=== PATIENT | female | born 1945 | race Caucasian/White ===

== ENCOUNTER 2018-12-31 13:19 | Inpatient (IN) | payer MEDICARE, BC ==
[2018-12-31] MEDS ORDERED: Ondansetron 4 MG/2 ML SDV IVPUSH ONE (13:50)
[2018-12-31] MEDS ORDERED: fentaNYL 100 MCG/2 ML SDV IVPUSH ONE (13:50)
--- NOTE | 2018-12-31 13:56 | EDM.PDOC ---
ED HPI GENERAL MEDICAL PROBLEM - General Chief Complaint: Abdominal Pain Stated Complaint: SEVERE ABDOMINAL PAIN Time Seen by Provider: 12/31/18 13:40 Source of Information: Reports: Patient History Limitations: Reports: No Limitations - History of Present Illness INITIAL COMMENTS - FREE TEXT/NARRATIVE: 73-year-old female with severe abdominal pain over the past 4 days. It did not start suddenly, she has nausea but no vomiting, intermittent loose stools. She feels bloated, the abdominal distention is worsening every day. She has a history of gluten insensitivity, thought it was that at first but it's worsening , not resolving. She had a years ago, also a hernia repair in the last few years. No fevers or chills, no radiation of pain to the back. No urinary symptoms. She is very uncomfortable. Onset: Gradual Duration: Day(s): (4 days) Location: Reports: Abdomen, Generalized Quality: Reports: Sharp, Stabbing Worsens with: Reports: Movement (Any movement or attempting to eat causes severe pain) Associated Symptoms: Reports: Nausea/Vomiting (Nausea but no vomiting). 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 - Infectious Disease History Infectious Disease History: Reports: Chicken Pox, Measles, Mumps - Past Surgical History HEENT Surgical History: Reports: Tonsillectomy GI Surgical History: Reports: Hernia Repair/Other Female Surgical History: Reports: Section Social & Family History - Tobacco Use Smoking Status *Q: Never Smoker Second Hand Smoke Exposure: No - Caffeine Use Caffeine Use: Reports: Coffee - Alcohol Use Days Per Week of Alcohol Use: 7 Number of Drinks Per Day: 1 Total Drinks Per Week: 7 - Recreational Drug Use Recreational Drug Use: No ED ROS GENERAL - Review of Systems Review Of Systems: See Below Constitutional: Reports: Malaise, Decreased Appetite. Denies: Fever, Chills HEENT: Reports: No Symptoms Respiratory: Denies: Shortness of Breath, Cough Cardiovascular: Denies: Chest Pain GI/Abdominal: Reports: Abdominal Pain, Diarrhea, Nausea. Denies: Constipation, Vomiting : Reports: No Symptoms Skin: Reports: No Symptoms Neurological: Denies: Headache Psychiatric: Reports: No Symptoms ED EXAM, GI/ABD - Physical Exam Exam: See Below Exam Limited By: No Limitations General Appearance: Alert, Moderate Distress (Very uncomfortable) Eyes: Bilateral: Normal Appearance (No jaundice) Respiratory/Chest: No Respiratory Distress, Lungs Clear Cardiovascular: Regular Rate, Rhythm GI/Abdominal Exam: Normal Bowel Sounds, Other (Marked abdominal distention, tenderness to palpation diffusely and guarding) Extremities: No: Pedal Edema Neurological: Alert, Oriented Psychiatric: Anxious Skin Exam: Warm, Dry Course - Vital Signs Last Recorded V/S: Last Vital Signs Temp 97.4 F 01/01/19 03:00 Pulse 66 01/01/19 07:00 Resp 18 01/01/19 07:00 BP 117/59 L 01/01/19 07:00 Pulse Ox 97 01/01/19 07:00 - Orders/Labs/Meds Orders: Active Orders 24 hr Category Date Time Status NG [Gastrointestinal Tube Mgmt] [RC] ASDIRECTED Care 12/31/18 15:54 Active Dextrose 5%-Lactated Ringers 1,000 ml Med 12/31/18 16:00 Active IV ASDIRECTED Sodium Chloride 0.9% [Saline Flush] Med 12/31/18 15:06 Active 10 ml FLUSH ASDIRECTED PRN NG [Nasogastric Orogastric Tube Insertion] [OM.PC] Oth 12/31/18 15:54 Ordered Routine Medication Orders Acetaminophen (Tylenol) 650 mg PO Q4H PRN PRN Reason: Pain (Mild 1-3)/fever Albuterol (Proventil Neb Soln) 2.5 mg NEB Q4H PRN PRN Reason: Shortness Of Breath/wheezing Fentanyl (Sublimaze) 25 mcg IVPUSH Q2H PRN PRN Reason: Pain (severe 7-10) Last Admin: 12/31/18 18:01 Dose: 25 mcg Dextrose/Lactated Ringer's (Dextrose 5%-Lactated Ringers) 1,000 mls @ 125 mls/ hr IV ASDIRECTED [facility] Last Admin: 01/01/19 03:06 Dose: 125 mls/hr Infusion: 01/01/19 02:00 Dose: 125 mls/hr Admin: 12/31/18 18:00 Dose: 125 mls/hr Piperacillin/Tazobactam/ (Dextrose 3.375 gm/ Premix) 50 mls @ 100 mls/hr IV Q6H [facility] Last Admin: 01/01/19 05:52 Dose: 100 mls/hr Admin: 12/31/18 23:53 Dose: 100 mls/hr Admin: 12/31/18 18:35 Dose: 100 mls/hr Lorazepam (Ativan) 0.5 mg IVPUSH Q4H PRN PRN Reason: Nausea/Vomiting Last Admin: 12/31/18 22:30 Dose: 0.5 mg Ondansetron HCl (Zofran Odt) 4 mg PO Q6H PRN PRN Reason: Nausea able to take PO Ondansetron HCl (Zofran) 4 mg IV Q6H PRN PRN Reason: Nausea/Vomiting Last Admin: 12/31/18 19:28 Dose: 4 mg Pantoprazole Sodium (Protonix Iv) [address] [facility] Last Admin: 12/31/18 19:57 Dose: 40 mg Sodium Chloride (Saline Flush) 10 ml FLUSH ASDIRECTED PRN PRN Reason: Keep Vein Open Last Admin: 12/31/18 15:10 Dose: 10 ml Labs: Laboratory Tests 12/31/18 12/31/18 12/31/18 Range/Units 13:50 13:50 13:50 WBC 10.4 (4.5-11.0) K/uL RBC 4.50 (3.30-5.50) M/uL Hgb 13.7 (12.0-15.0) g/dL Hct 40.4 (36.0-48.0) % MCV 90 (80-98) fL MCH 30 (27-31) pg MCHC 34 (32-36) % Plt Count 247 (150-400) K/uL Neut % (Auto) 81 H (36-66) % Lymph % (Auto) 9 L (24-44) % [place] % (Auto) 8 H (2-6) % Eos % (Auto) 1 L (2-4) % Baso % (Auto) 0 (0-1) % Sodium 125 L (140-148) mmol/L Potassium 3.7 (3.6-5.2) mmol/L Chloride 89 L (100-108) mmol/L Carbon Dioxide 25 (21-32) mmol/L Anion Gap 14.7 H (5.0-14.0) mmol/L BUN 8 (7-18) mg/dL Creatinine 0.8 (0.6-1.0) mg/dL Est Cr Clr Drug Dosing 55.70 mL/min Estimated GFR (MDRD) > 60 (>60) Glucose 122 H (74-106) mg/dL Lactic Acid 2.1 H (0.4-2.0) mmol/L Calcium 9.5 (8.5-10.1) mg/dL Total Bilirubin 1.1 H (0.2-1.0) mg/dL AST 35 (15-37) U/L ALT 33 (12-78) U/L Alkaline Phosphatase 83 (46-116) U/L Total Protein 8.0 (6.4-8.2) g/dL Albumin 3.4 (3.4-5.0) g/dL Globulin 4.6 H (2.3-3.5) g/dL Albumin/Globulin Ratio 0.7 L (1.2-2.2) Lipase 59 L (73-393) U/L Meds: Medications Generic Name Dose Route Start Last Admin Trade Name Freq PRN Reason Stop Dose Admin Acetaminophen 650 mg 12/31/18 17:26 Tylenol PO Q4H PRN Pain (Mild 1-3)/fever Albuterol 2.5 mg 12/31/18 17:26 Proventil Neb Soln NEB Q4H PRN Shortness Of Breath/wheezing Fentanyl 25 mcg 12/31/18 17:26 12/31/18 18:01 Sublimaze IVPUSH 25 mcg Q2H PRN Administration Pain (severe 7-10) Dextrose/Lactated Ringer's 1,000 mls @ 125 mls/hr 12/31/18 16:00 01/01/19 03: 06 Dextrose 5%-Lactated Ringers IV 125 mls/hr ASDIRECTED SHELL Administration Piperacillin/Tazobactam/ 50 mls @ 100 mls/hr 12/31/18 18:00 01/01/19 05:52 Dextrose 3.375 gm/ Premix IV 100 mls/hr Q6H SHELL Administration Lorazepam 0.5 mg 12/31/18 17:26 12/31/18 22:30 Ativan IVPUSH 0.5 mg Q4H PRN Administration Nausea/Vomiting Ondansetron HCl 4 mg 12/31/18 17:26 Zofran Odt PO Q6H PRN Nausea able to take PO Ondansetron HCl 4 mg 12/31/18 17:26 12/31/18 19:28 Zofran IV 4 mg Q6H PRN Administration Nausea/Vomiting Pantoprazole Sodium 40 mg 12/31/18 20:00 12/31/18 19:57 Protonix Iv IV 40 mg Q24H SHELL Administration Sodium Chloride 10 ml 12/31/18 15:06 12/31/18 15:10 Saline Flush FLUSH 10 ml ASDIRECTED PRN Administration Keep Vein Open Discontinued Medications Generic Name Dose Route Start Last Admin Trade Name Freq PRN Reason Stop Dose Admin Fentanyl 50 mcg 12/31/18 13:50 12/31/18 14:12 Sublimaze IVPUSH 12/31/18 13:51 50 mcg ONETIME ONE Administration Sodium Chloride 1,000 mls @ 500 mls/hr 12/31/18 14:00 12/31/18 14:08 Normal Saline IV 500 mls/hr ASDIRECTED SHELL Administration Sodium Chloride 80 mls @ 3 mls/sec 12/31/18 15:15 12/31/18 15:11 Normal Saline IV 3 mls/sec ASDIRECTED SHELL Administration Iopamidol 100 ml 12/31/18 15:15 12/31/18 15:10 Isovue-300 (61%) IV 100 ml . DIRECTED SHELL Administration Lorazepam 0.5 mg 12/31/18 15:54 12/31/18 16:07 Ativan IVPUSH 12/31/18 15:55 0.5 mg ONETIME ONE Administration Ondansetron HCl 4 mg 12/31/18 13:50 12/31/18 14:09 Zofran IVPUSH 12/31/18 13:51 4 mg ONETIME ONE Administration - Re-Assessments/Exams Free Text/Narrative Re-Assessment/Exam: 12/31/18 13:55 An IV will be started, patient will be given 50 g of fentanyl and 4 mg of IV Zofran. Normal saline hydration at 500 mL an hour. CBC, CMP, lactic acid and lipase with amylase were obtained and the patient will need a CT of the abdomen. 12/31/18 15:27 White count is normal, lactic acid 2.1, hemoglobin normal. Flat and upright x- ray shows multiple small bowel loops with air-fluid levels. The rest of her CMP was also reassuring. Dr. Pal, the hospitalist service agreed to see the patient to discuss admission for small bowel obstruction. CT abdomen confirms not only a small bowel obstruction but a fairly significant left-sided mass which could be an ongoing collection of infection or possibly a lesion. She will likely need surgery for evaluation. Departure - Departure Time of Disposition: 17:27 Disposition: Admitted As Inpatient 68 Clinical Impression: Small bowel obstruction Abdominal pain Qualifiers: Abdominal location: generalized Qualified Code(s): R10.84 - Generalized abdominal pain - Discharge Information - My Orders Last 24 Hours: My Active Orders 12/31/18 15:06 Sodium Chloride 0.9% [Saline Flush] 10 ml FLUSH ASDIRECTED PRN - Assessment/Plan Last 24 Hours: My Active Orders 12/31/18 15:06 Sodium Chloride 0.9% [Saline Flush] 10 ml FLUSH ASDIRECTED PRN
[2018-12-31] MEDS ORDERED: Sodium Chloride 0.9% 1,000 ML IV SCH (14:00)
[2018-12-31] MEDS ORDERED: Sodium Chloride 0.9% 10 ML Syringe FLUSH PRN (15:06)
[2018-12-31] MEDS ORDERED: Iopamidol 612 MG/ML 100 ML Bottle IV SCH (15:15)
[2018-12-31] MEDS ORDERED: Sodium Chloride 0.9% 80 ML IV SCH (15:15)
--- NOTE | 2018-12-31 15:17 | CRLCR ---
Indication: Left upper quadrant pain, postsurgical malabsorption, status post bariatric surgery. Technique: Abdomen 2 view. Comparison: None. Findings: Multiple loops of dilated small bowel with air-fluid levels in the right and mid abdomen. A small amount of stool is seen in the rectum. Otherwise no colonic air. Findings are worrisome for obstruction. No pneumatosis or free air. Thoracolumbar curve. Degenerative changes lower lumbar spine. The lung bases are clear. Impression: Findings worrisome for small bowel obstruction. Dictated by Rosana Adan MD @ Dec 31 2018 3:12PM Signed by Dr. Rosana Adan @ Dec 31 2018 3:17PM
[2018-12-31] MEDS ORDERED: LORazepam 2 MG/ML SDV IVPUSH ONE (15:54)
--- NOTE | 2018-12-31 16:05 | PCM.HP.2 ---
H&P History of Present Illness - General Date of Service: 12/31/18 Admit Problem/Dx: Admission Diagnosis/Problem Admission Diagnosis/Problem Small bowel obstruction due to adhesions Source of Information: Patient, Family, Provider History Limitations: Reports: No Limitations - History of Present Illness Initial Comments - Free Text/Narative: CC: I have cramps HPI: Iraida presents to the emergency room today with 4 days of progressive crampy abdominal pain. The pain is most intense on the right side of the abdomen and comes and goes in waves. She always has a low level of pain present and when the pain progresses it can become severe. She has tried omeprazole and Gas-X without any relief. If she bends over that seems to help the pain. Eating or attempts to eat have made the pain worse. She has had nausea but no vomiting. She has never had pain like this before. Pain has steadily been getting worse. She has not had significant fevers or shaking chills. No change in bladder habits. She does continue to pass some stool but it has been watery diarrhea and small quantities. No complaints of shortness of breath. She did have a hernia surgery on the right lower side of her abdomen in July of this year. Workup in the emergency room revealed normal labs other than a mildly elevated lactic acid. CT scan of the abdomen and pelvis suggested a bowel obstruction. An NG tube we placed in the emergency room and she will be admitted for management. 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 - Infectious Disease History Infectious Disease History: Reports: Chicken Pox, Measles, Mumps - Past Surgical History HEENT Surgical History: Reports: Tonsillectomy GI Surgical History: Reports: Hernia Repair/Other Female Surgical History: Reports: Section Social & Family History - Family History Cardiac: Reports: CAD - Tobacco Use Smoking Status *Q: Never Smoker Second Hand Smoke Exposure: No - Caffeine Use Caffeine Use: Reports: Coffee - Alcohol Use Days Per Week of Alcohol Use: 7 Number of Drinks Per Day: 1 Total Drinks Per Week: 7 - Recreational Drug Use Recreational Drug Use: No H&P Review of Systems - Review of Systems: Review Of Systems: See Below Free Text/Narrative: A complete 12 point review of systems was obtained. Pertinent positives and negatives are noted in the history of present illness. All other systems were reviewed and were negative except as noted. Exam - Exam Exam: See Below - Vital Signs Vital Signs: Last Vital Signs Temp 35.5 C 12/31/18 13:43 Pulse 71 12/31/18 13:43 Resp 16 12/31/18 13:43 BP 154/56 H 12/31/18 13:43 Pulse Ox 99 12/31/18 13:43 Weight: 56.245 kg - Exam Quality Assessment: No: Supplemental Oxygen General: Alert, Oriented, Cooperative. No: Mild Distress HEENT: Conjunctiva Clear. No: Mucosa Moist & [place] (dry), Scleral Icterus Neck: Supple, Trachea Midline. No: Lymphadenopathy Lungs: Clear to Auscultation, Normal Respiratory Effort Cardiovascular: Regular Rate, Regular Rhythm. No: Systolic Murmur GI/Abdominal Exam: Distended, Tender (exquisite tenderness diffusely ), Abnormal Bowel Sounds (hypoactive with tympanic sounds). No: Soft Back Exam: Normal Inspection, Full Range of Motion Extremities: No Pedal Edema. No: Increased Warmth Peripheral Pulses: 2+: Dorsalis Pedis (L), Dorsalis Pedis (R) Skin: Warm, Dry Neuro Extensive - Mental Status: Alert, Oriented x3, Nl Response to Commands Neuro Extensive - Motor, Sensory, Reflexes: No: Dysarthria, Abnormal Motor, Tremor Psychiatric: Alert, Normal Affect - Patient Data Lab Results Last 24 hrs: Laboratory Results - last 24 hr 12/31/18 12/31/18 12/31/18 Range/Units 13:50 13:50 13:50 WBC 10.4 (4.5-11.0) K/uL RBC 4.50 (3.30-5.50) M/uL Hgb 13.7 (12.0-15.0) g/dL Hct 40.4 (36.0-48.0) % MCV 90 (80-98) fL MCH 30 (27-31) pg MCHC 34 (32-36) % Plt Count 247 (150-400) K/uL Neut % (Auto) 81 H (36-66) % Lymph % (Auto) 9 L (24-44) % [place] % (Auto) 8 H (2-6) % Eos % (Auto) 1 L (2-4) % Baso % (Auto) 0 (0-1) % Sodium 125 L (140-148) mmol/L Potassium 3.7 (3.6-5.2) mmol/L Chloride 89 L (100-108) mmol/L Carbon Dioxide 25 (21-32) mmol/L Anion Gap 14.7 H (5.0-14.0) mmol/L BUN 8 (7-18) mg/dL Creatinine 0.8 (0.6-1.0) mg/dL Est Cr Clr Drug Dosing 55.70 mL/min Estimated GFR (MDRD) > 60 (>60) Glucose 122 H (74-106) mg/dL Lactic Acid 2.1 H (0.4-2.0) mmol/L Calcium 9.5 (8.5-10.1) mg/dL Total Bilirubin 1.1 H (0.2-1.0) mg/dL AST 35 (15-37) U/L ALT 33 (12-78) U/L Alkaline Phosphatase 83 (46-116) U/L Total Protein 8.0 (6.4-8.2) g/dL Albumin 3.4 (3.4-5.0) g/dL Globulin 4.6 H (2.3-3.5) g/dL Albumin/Globulin Ratio 0.7 L (1.2-2.2) Lipase 59 L (73-393) U/L Result Diagrams: 12/31/18 13:50 12/31/18 13:50 Imaging Impressions Last 24 hrs: CT abd/pelvis - images personally reviewed - dilated loops of small bowel with air fluid levels concerning for SBO. Transition point probably in the right lower abdomen. *Q Meaningful Use (ADM) - VTE Risk Assess *Q Each Risk Factor Represents 1 Point: None Total Score 1 Point Risk Factors: 0 Each Risk Factor Represents 2 Points: Age 60 - 74 Years Total Score 2 Point Risk Factors: 2 Each Risk Factor Represents 3 Points: None Total Score 3 Point Risk Factors: 0 Each Risk Factor Represents 5 Points: None Total Score 5 Point Risk Factors: 0 Venous Thromboembolism Risk Factor Score *Q: 2 - Problem List (1) Small bowel obstruction SNOMED Code(s): 029017016 ICD Code: K56.609 - UNSP INTESTNL OBST, UNSP TO PARTIAL VERSUS COMPLETE OBST Status: Acute Current Visit: Yes Problem List Initiated/Reviewed/Updated: Yes Orders Last 24hrs: Active Orders 24 hr Category Date Time Status Patient Status Manage Transfer [TRANSFER] Routine ADT 12/31/18 15:56 Ordered NG [Gastrointestinal Tube Mgmt] [RC] ASDIRECTED Care 12/31/18 15:54 Active Abdomen Pelvis w Cont [CT] Stat Exams 12/31/18 14:46 Taken Dextrose 5%-Lactated Ringers 1,000 ml Med 12/31/18 16:00 Active IV ASDIRECTED Iopamidol [Isovue-300 (61%)] Med 12/31/18 15:15 Active 100 ml IV . DIRECTED Sodium Chloride 0.9% [Saline Flush] Med 12/31/18 15:06 Active 10 ml FLUSH ASDIRECTED PRN NG [Nasogastric Orogastric Tube Insertion] [OM.PC] Oth 12/31/18 15:54 Ordered Routine Resuscitation Status Routine Resus Stat 12/31/18 15:56 Ordered Medication Orders Dextrose/Lactated Ringer's (Dextrose 5%-Lactated Ringers) 1,000 mls @ 125 mls/ hr IV ASDIRECTED SHELL Iopamidol (Isovue-300 (61%)) 100 ml IV . DIRECTED SHELL Last Admin: 12/31/18 15:10 Dose: 100 ml Sodium Chloride (Saline Flush) 10 ml FLUSH ASDIRECTED PRN PRN Reason: Keep Vein Open Last Admin: 12/31/18 15:10 Dose: 10 ml Assessment/Plan Comment:: ASSESSMENT AND PLAN - Small bowel obstruction - likely secondary to adhesions. To my eye the transition point appears to be in the right lower abdomen where she had her hernia surgery several months ago. She has significant distention at this time and would benefit from NG tube decompression. There is evidence for dehydration. -NG tube placement with low continuous suction -IV fluids -Symptomatic management of pain and nausea -Flat and upright in the morning -Surgical consultation if worsening or not improving Essential hypertension - planning to hold lisinopril until we see how her blood pressure trends. Gluten Intolerance - Maintenance issues - - DVT prophylaxis - SCDs - GI prophylaxis - IV PPI - Nutrition - nothing by mouth - Calle catheter - not indicated at this time CODE STATUS - full code Admission justification - This patient will be admitted for inpatient services and is medically appropriate meeting medical necessity for inpatient admission as outlined in my documentation. I reasonably expect the patient will require inpatient services that span a period time over 2 midnights. I reasonably expect this patient to be discharged or transferred within 96 hours after admission to the [facility]. Disposition - I would anticipate discharge home after the hospital stay Primary care physician - Isaac Pal M.D. - Mortality Measure Prognosis:: Good
--- NOTE | 2018-12-31 16:58 | CRLCT ---
INDICATION: Abdominal pain, distention. TECHNIQUE: CT abdomen and pelvis acquired with 100 cc Isovue-300 IV contrast. COMPARISON: Abdominal radiograph 12/31/2018. FINDINGS: There is an approximately 8.2 x 6.0 x 8.8 cm heterogeneously enhancing mass or complex fluid collection in the left abdomen (series 2 image 69 and series 3 image 35). The descending colon appears closely associated with this mass. There are multiple dilated loops of mid and distal small-bowel with air-fluid levels with proximal discrete transition point in the left abdomen near this mass. The stomach and duodenum are not dilated. No decompressed distal small bowel loops or distal transition point is identified. Scattered interloop free fluid throughout the abdomen. No definite free air or pneumatosis. Findings are worrisome for a colonic mass versus perforation with abscess formation. Likely reactive small bowel ileus. The liver, gallbladder, spleen, pancreas, kidneys, and adrenal glands are negative. No hydronephrosis. No definite lymphadenopathy. Degenerative changes of the spine. Mild bibasilar atelectasis. The lung bases are otherwise clear. IMPRESSION: 1. Large heterogeneously enhancing mass or complex fluid collection in the left abdomen which appears closely associated with the descending colon. Findings are worrisome for a colonic mass or perforation with abscess. Findings discussed with Edward Kurtz at 4:54 p.m. on 12/31/2018. 2. Multiple dilated loops of mid and distal small bowel with air-fluid levels and proximal discrete transition point near the left abdominal process. No distal transition point is identified. Findings may represent reactive ileus. Please note that all CT scans at this facility use dose modulation, iterative reconstruction, and/or weight-based dosing when appropriate to reduce radiation dose to as low as reasonably achievable. Dictated by Rosana Adan MD @ Dec 31 2018 4:34PM Signed by Dr. Rosana Adan @ Dec 31 2018 4:57PM
[2018-12-31] MEDS ORDERED: Acetaminophen 325 MG Tab PO PRN (17:26)
[2018-12-31] MEDS ORDERED: Albuterol 0.083% 2.5 MG/3 ML Neb Soln NEB PRN (17:26)
[2018-12-31] MEDS: Dextrose 5%-Lactated Ringers 1,000 ML IV SCH (18:00)
[2018-12-31] MEDS: fentaNYL 100 MCG/2 ML SDV IVPUSH PRN (18:01)
[2018-12-31] MEDS: Piperacillin/Tazobactam/Dext 3.375 GM in Premix Bag 1 BAG IV SCH ×2 (18:35→23:53)
[2018-12-31] MEDS: Ondansetron 4 MG/2 ML SDV IV PRN (19:28)
[2018-12-31] MEDS: Pantoprazole 40 MG Vial IV SCH (19:57)
[2018-12-31] MEDS: LORazepam 2 MG/ML SDV IVPUSH PRN (22:30)
[2019-01-01] MEDS: Dextrose 5%-Lactated Ringers 1,000 ML IV SCH ×3 (03:06→19:10)
[2019-01-01] MEDS: Piperacillin/Tazobactam/Dext 3.375 GM in Premix Bag 1 BAG IV SCH ×4 (05:52→23:56)
--- NOTE | 2019-01-01 05:53 | CRLCR ---
INDICATION: Small bowel obstruction TECHNIQUE: Abdominal radiograph 2 views COMPARISON: 12/31/2018 FINDINGS: Bowel: Multiple loops of air-filled dilated small bowel with scattered air-fluid levels are present and slightly more distended than prior examination. Interval placement of NG tube noted with the tip in the gastric body. Soft tissue: No evidence of pneumoperitoneum present. No suspicious calcifications noted. The bladder is opacified by excreted contrast. Bone: Unremarkable for age. IMPRESSIONS: 1. Multiple loops of air-filled dilated small bowel with scattered air-fluid levels are present and slightly more distended than prior examination. Findings remain consistent for small-bowel obstruction. 2. Interval placement of NG tube noted with the tip in the gastric body. Dictated by Jose Antonio Varma MD @ 01/01/2019 5:52:03 AM Dictated by: Jose Antonio Varma MD @ 01/01/2019 05:52:05 (Electronically Signed)
--- NOTE | 2019-01-01 09:45 | PCM.PN ---
- General Info Date of Service: 01/01/19 Subjective Update: There were no acute events overnight. She did have an episode of nausea with vomiting after the TV remote was dropped on her abdomen. No nausea this am. Pain controlled. No fevers. Abdominal X-ray shows increased distension. Not passing gas and no BM. Functional Status: Reports: Pain Controlled - Review of Systems General: Denies: Fever Gastrointestinal: Reports: Abdominal Pain. Denies: Nausea - Patient Data Vitals - Most Recent: Last Vital Signs Temp 36.3 C 01/01/19 03:00 Pulse 66 01/01/19 07:00 Resp 18 01/01/19 07:00 BP 117/59 L 01/01/19 07:00 Pulse Ox 97 01/01/19 07:00 Weight - Most Recent: 58.287 kg I&O - Last 24 Hours: Intake & Output 12/31/18 01/01/19 01/01/19 22:59 06:59 14:59 Intake Total 125 1673 Output Total 150 400 200 Balance -25 -400 1473 Lab Results Last 24 Hours: Laboratory Results - last 24 hr 12/31/18 12/31/18 12/31/18 Range/Units 13:50 13:50 13:50 WBC 10.4 (4.5-11.0) K/uL RBC 4.50 (3.30-5.50) M/uL Hgb 13.7 (12.0-15.0) g/dL Hct 40.4 (36.0-48.0) % MCV 90 (80-98) fL MCH 30 (27-31) pg MCHC 34 (32-36) % Plt Count 247 (150-400) K/uL Neut % (Auto) 81 H (36-66) % Lymph % (Auto) 9 L (24-44) % [place] % (Auto) 8 H (2-6) % Eos % (Auto) 1 L (2-4) % Baso % (Auto) 0 (0-1) % Sodium 125 L (140-148) mmol/L Potassium 3.7 (3.6-5.2) mmol/L Chloride 89 L (100-108) mmol/L Carbon Dioxide 25 (21-32) mmol/L Anion Gap 14.7 H (5.0-14.0) mmol/L BUN 8 (7-18) mg/dL Creatinine 0.8 (0.6-1.0) mg/dL Est Cr Clr Drug Dosing 55.70 mL/min Estimated GFR (MDRD) > 60 (>60) Glucose 122 H (74-106) mg/dL Lactic Acid 2.1 H (0.4-2.0) mmol/L Calcium 9.5 (8.5-10.1) mg/dL Magnesium (1.8-2.4) mg/dL Total Bilirubin 1.1 H (0.2-1.0) mg/dL AST 35 (15-37) U/L ALT 33 (12-78) U/L Alkaline Phosphatase 83 (46-116) U/L Total Protein 8.0 (6.4-8.2) g/dL Albumin 3.4 (3.4-5.0) g/dL Globulin 4.6 H (2.3-3.5) g/dL Albumin/Globulin Ratio 0.7 L (1.2-2.2) Lipase 59 L (73-393) U/L 01/01/19 01/01/19 Range/Units 04:35 04:35 WBC 10.1 (4.5-11.0) K/uL RBC 4.18 (3.30-5.50) M/uL Hgb 12.7 (12.0-15.0) g/dL Hct 37.7 (36.0-48.0) % MCV 90 (80-98) fL MCH 30 (27-31) pg MCHC 34 (32-36) % Plt Count 285 (150-400) K/uL Neut % (Auto) (36-66) % Lymph % (Auto) (24-44) % [place] % (Auto) (2-6) % Eos % (Auto) (2-4) % Baso % (Auto) (0-1) % Sodium 127 L (140-148) mmol/L Potassium 4.3 (3.6-5.2) mmol/L Chloride 93 L (100-108) mmol/L Carbon Dioxide 28 (21-32) mmol/L Anion Gap 10.3 (5.0-14.0) mmol/L BUN 9 (7-18) mg/dL Creatinine 0.8 (0.6-1.0) mg/dL Est Cr Clr Drug Dosing 55.70 mL/min Estimated GFR (MDRD) > 60 (>60) Glucose 165 H (74-106) mg/dL Lactic Acid (0.4-2.0) mmol/L Calcium 8.5 (8.5-10.1) mg/dL Magnesium 2.0 (1.8-2.4) mg/dL Total Bilirubin (0.2-1.0) mg/dL AST (15-37) U/L ALT (12-78) U/L Alkaline Phosphatase (46-116) U/L Total Protein (6.4-8.2) g/dL Albumin (3.4-5.0) g/dL Globulin (2.3-3.5) g/dL Albumin/Globulin Ratio (1.2-2.2) Lipase (73-393) U/L Med Orders - Current: Current Medications Acetaminophen (Tylenol) 650 mg PO Q4H PRN PRN Reason: Pain (Mild 1-3)/fever Albuterol (Proventil Neb Soln) 2.5 mg NEB Q4H PRN PRN Reason: Shortness Of Breath/wheezing Fentanyl (Sublimaze) 25 mcg IVPUSH Q2H PRN PRN Reason: Pain (severe 7-10) Last Admin: 12/31/18 18:01 Dose: 25 mcg Dextrose/Lactated Ringer's (Dextrose 5%-Lactated Ringers) 1,000 mls @ 125 mls/ hr IV ASDIRECTED [facility] Last Admin: 01/01/19 03:06 Dose: 125 mls/hr Piperacillin/Tazobactam/ (Dextrose 3.375 gm/ Premix) 50 mls @ 100 mls/hr IV Q6H [facility] Last Admin: 01/01/19 05:52 Dose: 100 mls/hr Lorazepam (Ativan) 0.5 mg IVPUSH Q4H PRN PRN Reason: Nausea/Vomiting Last Admin: 12/31/18 22:30 Dose: 0.5 mg Ondansetron HCl (Zofran Odt) 4 mg PO Q6H PRN PRN Reason: Nausea able to take PO Ondansetron HCl (Zofran) 4 mg IV Q6H PRN PRN Reason: Nausea/Vomiting Last Admin: 12/31/18 19:28 Dose: 4 mg Pantoprazole Sodium (Protonix Iv) 40 mg IV Q24H [facility] Last Admin: 12/31/18 19:57 Dose: 40 mg Sodium Chloride (Saline Flush) 10 ml FLUSH ASDIRECTED PRN PRN Reason: Keep Vein Open Last Admin: 12/31/18 15:10 Dose: 10 ml Discontinued Medications Fentanyl (Sublimaze) 50 mcg IVPUSH ONETIME ONE Stop: 12/31/18 13:51 Last Admin: 12/31/18 14:12 Dose: 50 mcg Sodium Chloride (Normal Saline) 1,000 mls @ 500 mls/hr IV ASDIRECTED [facility] Last Admin: 12/31/18 14:08 Dose: 500 mls/hr Sodium Chloride (Normal Saline) 80 mls @ 3 mls/sec IV ASDIRECTED [facility] Last Admin: 12/31/18 15:11 Dose: 3 mls/sec Iopamidol (Isovue-300 (61%)) 100 ml IV . DIRECTED [facility] Last Admin: 12/31/18 15:10 Dose: 100 ml Lorazepam (Ativan) 0.5 mg IVPUSH ONETIME ONE Stop: 12/31/18 15:55 Last Admin: 12/31/18 16:07 Dose: 0.5 mg Ondansetron HCl (Zofran) 4 mg IVPUSH ONETIME ONE Stop: 12/31/18 13:51 Last Admin: 12/31/18 14:09 Dose: 4 mg - Exam Quality Assessment: No: Supplemental Oxygen General: Alert, Oriented, Cooperative, No Acute Distress Lungs: Normal Respiratory Effort GI/Abdominal Exam: Soft, Distended, Tender, Abnormal Bowel Sounds (hypoactive) Extremities: No Pedal Edema. No: Increased Warmth Psy/Mental Status: Alert, Normal Affect - Problem List & Annotations (1) Small bowel obstruction SNOMED Code(s): 490605983 Code(s): K56.609 - UNSP INTESTNL OBST, UNSP TO PARTIAL VERSUS COMPLETE OBST Status: Acute Current Visit: Yes - Problem List Review Problem List Initiated/Reviewed/Updated: Yes - My Orders Last 24 Hours: My Active Orders 12/31/18 15:54 NG [Gastrointestinal Tube Mgmt] [RC] ASDIRECTED NG [Nasogastric Orogastric Tube Insertion] [OM.PC] Routine 12/31/18 15:56 Resuscitation Status Routine 12/31/18 16:00 Dextrose 5%-Lactated Ringers 1,000 ml IV ASDIRECTED 12/31/18 17:26 Patient Status [ADT] Routine Antiembolic Devices [RC] .Routine Intake and Output [RC] QSHIFT Notify Provider Vital Signs [RC] ASDIRECTED Oxygen Therapy [RC] PRN RT Aerosol Therapy [RC] ASDIRECTED Up ad Carmita [RC] ASDIRECTED VTE/DVT Education [RC] Per Unit Routine Vital Signs [RC] Q4H Acetaminophen [Tylenol] 650 mg PO Q4H PRN Albuterol [Proventil Neb Soln] 2.5 mg NEB Q4H PRN LORazepam [Ativan] 0.5 mg IVPUSH Q4H PRN Ondansetron [Zofran ODT] 4 mg PO Q6H PRN Ondansetron [Zofran] 4 mg IV Q6H PRN fentaNYL [Sublimaze] 25 mcg IVPUSH Q2H PRN Sequential Compression Device [OM.PC] Routine 12/31/18 18:00 Piperacillin/Tazobactam/Dext [Zosyn in Dextrose Iso-Osmotic 3.375 GM] 3.375 gm Premix Bag 1 bag IV Q6H 12/31/18 20:00 Pantoprazole [ProTONIX IV] 40 mg IV Q24H 12/31/18 Dinner Nothing per Oral Now Diet [DIET] 01/01/19 09:43 Consult to Physician [CONS] Routine 01/01/19 09:44 Notify Provider Consults [RC] ASDIRECTED 01/02/19 05:00 BASIC METABOLIC PANEL,BMP [CHEM] Timed CBC W/O DIFF,HEMOGRAM [HEME] Timed (1) - Plan Plan:: ASSESSMENT AND PLAN - Complex fluid collection versus mass in left upper quadrant - no lymphadenopathy. I suspect this is from previous ruptured diverticulitis with walled off abscess. Surgical team will be consult did and I would anticipate surgical intervention later in the day. -Consult Dr. Leblanc -Additional management as discussed below Small bowel obstruction - likely secondary to adhesions complex fluid collection in the left upper quadrant. x-ray shows increased disntion today. -NG tube placement with low continuous suction -IV fluids -Symptomatic management of pain and nausea Essential hypertension - planning to hold lisinopril until we see how her blood pressure trends. Gluten Intolerance Maintenance issues - - DVT prophylaxis - SCDs - GI prophylaxis - IV PPI - Nutrition - nothing by mouth Disposition - I would anticipate discharge home after the hospital stay Primary care physician - Isaac Pal M.D.
[2019-01-01] MEDS: Erythromycin Ethylsuccinate Susp 200 MG/5 ML 100 ML Bottle PO SCH ×3 (15:27→21:16)
[2019-01-01] MEDS: Pantoprazole 40 MG Vial IV SCH (21:15)
[2019-01-02] MEDS: fentaNYL 100 MCG/2 ML SDV IVPUSH PRN (01:46)
[2019-01-02] MEDS: Ondansetron 4 MG/2 ML SDV IV PRN (01:46)
[2019-01-02] MEDS: LORazepam 2 MG/ML SDV IVPUSH PRN (03:52)
[2019-01-02] MEDS: Dextrose 5%-Lactated Ringers 1,000 ML IV SCH (04:09)
[2019-01-02] MEDS: Piperacillin/Tazobactam/Dext 3.375 GM in Premix Bag 1 BAG IV SCH ×3 (05:41→19:51)
[2019-01-02] MEDS ORDERED: Naloxone 0.4 MG/ML SDV IVPUSH PRN (07:46)
[2019-01-02] MEDS ORDERED: fentaNYL 250 MCG/5 ML SDV ONE (07:52)
[2019-01-02] MEDS ORDERED: Glycopyrrolate 0.2 MG/ML 5 ML MDV ONE (07:53)
[2019-01-02] MEDS ORDERED: Ondansetron 4 MG/2 ML SDV ONE (07:53)
[2019-01-02] MEDS ORDERED: Dexamethasone 4 MG/ML SDV ONE (07:53)
[2019-01-02] MEDS ORDERED: Propofol 200 MG/20 ML SDV ONE (07:53)
[2019-01-02] MEDS ORDERED: Rocuronium 50 MG/5 ML Vial ONE (07:53)
[2019-01-02] MEDS ORDERED: Neostigmine Methylsulfate 1 MG/ML 5 ML Syringe ONE (07:53)
[2019-01-02] MEDS ORDERED: Sodium Chloride 0.9% 10 ML ONE (09:02)
[2019-01-02] MEDS ORDERED: Midazolam 1 MG/ML 2 ML SDV ONE (09:11)
[2019-01-02] MEDS ORDERED: Succinylcholine 200 MG/10 ML MDV ONE (09:33)
[2019-01-02] MEDS ORDERED: Lactated Ringers 1,000 ML ONE (10:26)
--- NOTE | 2019-01-02 10:33 | PCM.PN ---
- General Info Date of Service: 01/02/19 Subjective Update: No acute events overnight. She did have an increase in her pain after receiving aggressive bowel stimulation. No significant pain or nausea this morning. She did not have any vomiting overnight. NG tube put out about 200 mL of fluid. No fevers. Surgical intervention is planned this morning. Functional Status: Reports: Pain Controlled - Review of Systems General: Denies: Fever Gastrointestinal: Reports: Abdominal Pain, Nausea - Patient Data Vitals - Most Recent: Last Vital Signs Temp 36.2 C 01/02/19 03:00 Pulse 69 01/02/19 03:00 Resp 14 01/02/19 03:00 BP 124/57 L 01/02/19 03:00 Pulse Ox 93 L 01/02/19 03:00 Weight - Most Recent: 58.287 kg I&O - Last 24 Hours: Intake & Output 01/01/19 01/02/19 01/02/19 22:59 06:59 14:59 Intake Total 1311 1403 Output Total 200 100 Balance 1111 1303 Lab Results Last 24 Hours: Laboratory Results - last 24 hr 01/02/19 01/02/19 01/02/19 Range/Units 03:41 03:41 09:14 WBC 8.9 (4.5-11.0) K/uL RBC 3.98 (3.30-5.50) M/uL Hgb 12.3 (12.0-15.0) g/dL Hct 36.4 (36.0-48.0) % MCV 92 (80-98) fL MCH 31 (27-31) pg MCHC 34 (32-36) % Plt Count 305 (150-400) K/uL Sodium 134 L (140-148) mmol/L Potassium 3.7 (3.6-5.2) mmol/L Chloride 97 L (100-108) mmol/L Carbon Dioxide 28 (21-32) mmol/L Anion Gap 12.7 (5.0-14.0) mmol/L BUN 5 L (7-18) mg/dL Creatinine 0.7 (0.6-1.0) mg/dL Est Cr Clr Drug Dosing 64.12 mL/min Estimated GFR (MDRD) > 60 (>60) Glucose 140 H (74-106) mg/dL Calcium 8.5 (8.5-10.1) mg/dL Blood Type O POSITIVE Gel Antibody Screen Negative Med Orders - Current: Current Medications Acetaminophen (Tylenol) 650 mg PO Q4H PRN PRN Reason: Pain (Mild 1-3)/fever Albuterol (Proventil Neb Soln) 2.5 mg NEB Q4H PRN PRN Reason: Shortness Of Breath/wheezing Fentanyl (Sublimaze) 25 mcg IVPUSH Q2H PRN PRN Reason: Pain (severe 7-10) Last Admin: 01/02/19 01:46 Dose: 25 mcg Dextrose/Lactated Ringer's (Dextrose 5%-Lactated Ringers) 1,000 mls @ 125 mls/ hr IV ASDIRECTED [facility] Last Admin: 01/02/19 04:09 Dose: 125 mls/hr Piperacillin/Tazobactam/ (Dextrose 3.375 gm/ Premix) 50 mls @ 100 mls/hr IV Q6H [facility] Last Admin: 01/02/19 05:41 Dose: 100 mls/hr Fentanyl 2,500 mcg/ Sodium (Chloride) 250 mls @ 0 mls/hr EPIDUR TITRATE [facility]; Protocol Lorazepam (Ativan) 0.5 mg IVPUSH Q4H PRN PRN Reason: Nausea/Vomiting Last Admin: 01/02/19 03:52 Dose: 0.5 mg Naloxone HCl (Narcan) 0.1 mg IVPUSH Q5M PRN PRN Reason: RESP RATE LESS THAN 6/MINUTE Ondansetron HCl (Zofran Odt) 4 mg PO Q6H PRN PRN Reason: Nausea able to take PO Ondansetron HCl (Zofran) 4 mg IV Q6H PRN PRN Reason: Nausea/Vomiting Last Admin: 01/02/19 01:46 Dose: 4 mg Pantoprazole Sodium (Protonix Iv) 40 mg IV Q24H [facility] Last Admin: 01/01/19 21:15 Dose: 40 mg Sodium Chloride (Saline Flush) 10 ml FLUSH ASDIRECTED PRN PRN Reason: Keep Vein Open Last Admin: 12/31/18 15:10 Dose: 10 ml Discontinued Medications Dexamethasone (Dexamethasone) Confirm Administered Dose 4 mg .ROUTE .STK-MED ONE Stop: 01/02/19 07:54 Erythromycin Ethylsuccinate (Eryped 200) 1,000 mg PO Q3H [facility] Stop: 01/01/19 21:01 Last Admin: 01/01/19 21:16 Dose: 1,000 mg Fentanyl (Sublimaze) 50 mcg IVPUSH ONETIME ONE Stop: 12/31/18 13:51 Last Admin: 12/31/18 14:12 Dose: 50 mcg Fentanyl (Sublimaze) Confirm Administered Dose 250 mcg .ROUTE .STK-MED ONE Stop: 01/02/19 07:53 Glycopyrrolate (Robinul) Confirm Administered Dose 1 mg .ROUTE .STK-MED ONE Stop: 01/02/19 07:54 Sodium Chloride (Normal Saline) 1,000 mls @ 500 mls/hr IV ASDIRECTED [facility] Last Admin: 12/31/18 14:08 Dose: 500 mls/hr Sodium Chloride (Normal Saline) 80 mls @ 3 mls/sec IV ASDIRECTED [facility] Last Admin: 12/31/18 15:11 Dose: 3 mls/sec Sodium Chloride (Normal Saline) Confirm Administered Dose 10 mls @ as directed .ROUTE .STK-MED ONE Stop: 01/02/19 09:03 Lactated Ringer's (Ringers, Lactated) Confirm Administered Dose 1,000 mls @ as directed .ROUTE .STK-MED ONE Stop: 01/02/19 10:27 Iopamidol (Isovue-300 (61%)) 100 ml IV . DIRECTED [facility] Last Admin: 12/31/18 15:10 Dose: 100 ml Lorazepam (Ativan) 0.5 mg IVPUSH ONETIME ONE Stop: 12/31/18 15:55 Last Admin: 12/31/18 16:07 Dose: 0.5 mg Midazolam HCl (Versed 1 Mg/Ml) Confirm Administered Dose 2 mg .ROUTE .STK-MED ONE Stop: 01/02/19 09:12 Neomycin Sulfate (Neomycin Sulfate) 1,000 mg PO Q3H [facility] Stop: 01/01/19 21:01 Last Admin: 01/01/19 21:16 Dose: 1,000 mg Neostigmine Methylsulfate (Neostigmine) Confirm Administered Dose 5 mg .ROUTE .STK-MED ONE Stop: 01/02/19 07:54 Ondansetron HCl (Zofran) 4 mg IVPUSH ONETIME ONE Stop: 12/31/18 13:51 Last Admin: 12/31/18 14:09 Dose: 4 mg Ondansetron HCl (Zofran) Confirm Administered Dose 4 mg .ROUTE .STK-MED ONE Stop: 01/02/19 07:54 Propofol (Diprivan 20 Ml) Confirm Administered Dose 200 mg .ROUTE .STK-MED ONE Stop: 01/02/19 07:54 Rocuronium [place] (Zemuron) Confirm Administered Dose 50 mg .ROUTE .STK-MED ONE Stop: 01/02/19 07:54 Succinylcholine Chloride (Quelicin) Confirm Administered Dose 200 mg .ROUTE .STK -MED ONE Stop: 01/02/19 09:34 - Exam Quality Assessment: No: Supplemental Oxygen General: Alert, Oriented, Cooperative, No Acute Distress Lungs: Normal Respiratory Effort GI/Abdominal Exam: Soft, Distended Extremities: No Pedal Edema Skin: Warm, Dry Psy/Mental Status: Alert, Normal Affect - Problem List & Annotations (1) Small bowel obstruction SNOMED Code(s): 765788243 Code(s): K56.609 - UNSP INTESTNL OBST, UNSP TO PARTIAL VERSUS COMPLETE OBST Status: Acute Current Visit: Yes - Problem List Review Problem List Initiated/Reviewed/Updated: Yes - My Orders Last 24 Hours: My Active Orders 01/01/19 09:43 Consult to Physician [CONS] Routine 01/01/19 09:44 Notify Provider Consults [RC] ASDIRECTED 01/03/19 05:00 BASIC METABOLIC PANEL,BMP [CHEM] Timed CBC W/O DIFF,HEMOGRAM [HEME] Timed (1) - Plan Plan:: ASSESSMENT AND PLAN - Complex fluid collection/abscess versus mass in left upper quadrant - no lymphadenopathy. I suspect this is from previous ruptured diverticulitis with walled off abscess. Surgical intervention planned today. -Surgical intervention this morning -Additional management as discussed below Small bowel obstruction - likely secondary to adhesions complex fluid collection in the left upper quadrant. -NG tube placement with low continuous suction -IV fluids -Symptomatic management of pain and nausea Essential hypertension - planning to hold lisinopril until we see how her blood pressure trends. Gluten Intolerance Maintenance issues - - DVT prophylaxis - SCDs - GI prophylaxis - IV PPI - Nutrition - nothing by mouth Disposition - I would anticipate discharge home after the hospital stay Primary care physician - Isaac Pal M.D.
[2019-01-02] MEDS ORDERED: diphenhydrAMINE 50 MG/ML SDV IVPUSH PRN (10:56)
[2019-01-02] MEDS ORDERED: Scopolamine 1.5 MG Transdermal Patch TOP SCH (11:00)
--- NOTE | 2019-01-02 11:54 | CONS ---
DATE OF SERVICE: 01/01/2019 REFERRING PHYSICIAN: CONSULTING PHYSICIAN: Stewart Leblanc MD REASON FOR CONSULTATION: Evaluation of abdominal pain. HISTORY OF PRESENT ILLNESS: This is a 73-year-old female who has hand a slow onset of abdominal pain over the course of greater than a week. This has resulted in intermittent constipation and diarrhea. The patient has attributed this to a gluten insensitivity modified by history of hernia repair with mesh and . The patient is currently not having bowel movements nor passing flatus. PAST MEDICAL HISTORY: Hypercholesterolemia, hernia repair with mesh as described above, section, and tonsillectomy. SOCIAL HISTORY: She does not smoke. FAMILY HISTORY: Noncontributory. REVIEW OF SYSTEMS: GENERAL: The patient feels tired. Has significantly decreased appetite recently. HEENT: No recent upper respiratory tract infections. RESPIRATORY: No shortness of breath. CARDIOVASCULAR: No chest pain. GASTROINTESTINAL: As above. EXTREMITIES: No abnormalities. NEUROLOGIC: No history of anxiety. PHYSICAL EXAMINATION: VITAL SIGNS: Stable. Temperature 97.3, blood pressure 124/64, pulse 63, respirations 16, and 96% on room air. HEENT: Pupils are equal. NECK: Supple. LUNGS: Clear. CARDIOVASCULAR: Regular rhythm and rate. RESPIRATORY: Lungs are clear to auscultation bilaterally. ABDOMEN: Significantly distended. Pain with palpation, rebound, and guarding. IMAGING: I did review the CT scan and there is concern for a colon mass. Less likely, it is diverticulitis. In addition, there is a transition point in the small bowel suggesting a concomitant small bowel obstruction. LABORATORY DATA: Lab results show a normal white blood cell count, hemoglobin is also normal at 12.3. Bilirubin is elevated at 1.1, creatinine is 0.7. ASSESSMENT AND PLAN: 1. 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 2. Small-bowel obstruction. The etiology of this can not be determined at this time. It is felt by myself and the other physicians that this is very suspicious for colon malignancy. Less likely, it is a diverticular mass. If this was a diverticular mass, in review of the imaging, this would not be amenable to percutaneous drainage as it is a multiloculated mass and also it is above the 5 cm criteria. The patient was given the option of percutaneous drainage. We discussed the current protocols and recommendations with this. However, she has declined management with percutaneous management. This would not be amenable to antibiotics alone. The patient and I and family had a long discussion about surgical management of this mass. At a minimum, this needs to be resected and evaluated with respect to pathology. If this is consistent with a diverticular-type mass, the most likely course would be primary resection with anastomosis plus or minus an ostomy, temporary. I did discuss with her that it depends on the intraoperative conditions which will determine the ostomy course. In addition, the patient has a small bowel obstruction. It is unclear if this is concomitant related or separate. However, she does have a history of mesh and the patient is obstipated at this time. Therefore, this also needs to be addressed intraoperatively. We also discussed laparoscopic surgery; however, this is a very complex mass with possible cancer and mesh with conjunction of a small bowel obstruction, therefore, open surgery would be the better choice at this time. The patient was well explained our experience, technical abilities at this facility. We also discussed risks, benefits, alternatives, and limitations including, but not limited to infection, bleeding, ostomy requirements, failure of anastomosis, septic shock, abscess formation, leaks, , cardiovascular compromise, and other risks not listed here. The patient and family understand these risks. In addition, this was explained in detail at the Tele conference with both the patient's sons. The patient understands these risks and wishes to proceed. Stewart Leblanc MD /[id number]
--- NOTE | 2019-01-02 12:20 | PN ---
DATE OF SERVICE: 01/02/2019 SUBJECTIVE: The patient has not had any bowel movements or passage of gas and remains obstipated. OBJECTIVE: VITAL SIGNS: Stable. ABDOMEN: Still distended. CARDIOVASCULAR: Regular rhythm and rate. RESPIRATORY: Lungs are clear to auscultation bilaterally. ASSESSMENT AND PLAN: The patient is not a candidate for nonoperative management of this. She has not passed gas nor is having bowel movements. Her abdominal pain is worsening and she is not responding to nasogastric tube. As there is a high concern, this also could be colon mass/malignancy, which would not respond to nonoperative management. A safest choice at that point is to take the patient to the operating room for resection of this mass. Please see yesterday's note for further details. Stewart Leblanc MD /[id number]
[2019-01-02] MEDS: Sodium Chloride 0.9% 1,000 ML IV SCH ×2 (12:50→21:26)
[2019-01-02] MEDS: fentaNYL 2,500 MCG in Sodium Chloride 0.9% 200 ML EPIDUR SCH (14:08)
[2019-01-02] MEDS: Pantoprazole 40 MG Vial IV SCH (19:51)
[2019-01-03] MEDS: Piperacillin/Tazobactam/Dext 3.375 GM in Premix Bag 1 BAG IV SCH ×4 (01:54→20:29)
[2019-01-03] MEDS: Sodium Chloride 0.9% 1,000 ML IV SCH ×2 (05:52→17:30)
[2019-01-03] MEDS ORDERED: Dextrose 5%-Lactated Ringers 1,000 ML IV SCH (08:45)
--- NOTE | 2019-01-03 09:08 | PCM.PN ---
- General Info Date of Service: 01/03/19 Subjective Update: There were no acute issues overnight. Patient has been stable since surgery. No fevers. Pain well controlled. No nausea. NG tube out this am. Not passing gas yet. No shortness of breath. Functional Status: Reports: Pain Controlled - Review of Systems General: Denies: Fever Gastrointestinal: Denies: Abdominal Pain - Patient Data Vitals - Most Recent: Last Vital Signs Temp 36.4 C 01/03/19 07:00 Pulse 71 01/03/19 07:00 Resp 12 01/03/19 07:00 BP 110/50 L 01/03/19 07:00 Pulse Ox 90 L 01/03/19 07:00 Weight - Most Recent: 58.287 kg I&O - Last 24 Hours: Intake & Output 01/02/19 01/03/19 01/03/19 22:59 06:59 14:59 Intake Total 1128 1594 Output Total 295 604 30 Balance 833 990 -30 Lab Results Last 24 Hours: Laboratory Results - last 24 hr 01/02/19 01/03/19 01/03/19 Range/Units : 04:00 04:00 WBC 7.9 (4.5-11.0) K/uL RBC 3.65 (3.30-5.50) M/uL Hgb 11.2 L (12.0-15.0) g/dL Hct 34.0 L (36.0-48.0) % MCV 93 (80-98) fL MCH 31 (27-31) pg MCHC 33 (32-36) % Plt Count 311 (150-400) K/uL Neut % (Auto) 75 H (36-66) % Lymph % (Auto) 10 L (24-44) % [place] % (Auto) 15 H (2-6) % Eos % (Auto) 0 L (2-4) % Baso % (Auto) 0 (0-1) % Sodium 137 L (140-148) mmol/L Potassium 4.1 (3.6-5.2) mmol/L Chloride 102 (100-108) mmol/L Carbon Dioxide 29 (21-32) mmol/L Anion Gap 10.1 (5.0-14.0) mmol/L BUN 7 (7-18) mg/dL Creatinine 0.7 (0.6-1.0) mg/dL Est Cr Clr Drug Dosing 64.12 mL/min Estimated GFR (MDRD) > 60 (>60) Glucose 116 H (74-106) mg/dL Calcium 8.2 L (8.5-10.1) mg/dL Blood Type O POSITIVE Gel Antibody Screen Negative Jordan Results Last 24 Hours: Microbiology 01/02/19 10:37 Anaerobic Culture - Preliminary Abdominal Fluid - Aspirate NO GROWTH AFTER 1 DAY 01/02/19 09:56 Anaerobic Culture - Preliminary Abdominal Fluid - Aspirate NO GROWTH AFTER 1 DAY 01/02/19 09:56 Gram Stain - Final Abdominal Fluid - Aspirate Wound Culture - Preliminary NO GROWTH AFTER 1 DAY 01/02/19 10:37 Gram Stain - Final Abdominal Fluid - Drainage Med Orders - Current: Current Medications Acetaminophen (Tylenol) 650 mg PO Q4H PRN PRN Reason: Pain (Mild 1-3)/fever Albuterol (Proventil Neb Soln) 2.5 mg NEB Q4H PRN PRN Reason: Shortness Of Breath/wheezing Bisacodyl (Dulcolax) 10 mg PO BID [facility] Diphenhydramine HCl (Benadryl) 25 mg IVPUSH Q4H PRN PRN Reason: Itching Docusate Sodium (Colace) 100 mg PO BID [facility] Enoxaparin Sodium (Lovenox) 40 mg SUBCUT DAILY [facility] Fentanyl (Sublimaze) 25 mcg IVPUSH Q2H PRN PRN Reason: Pain (severe 7-10) Last Admin: 01/02/19 01:46 Dose: 25 mcg Gabapentin (Neurontin) 300 mg PO TID [facility] Fentanyl 2,500 mcg/ Sodium (Chloride) 250 mls @ 0 mls/hr EPIDUR TITRATE [facility]; Protocol Last Admin: 01/02/19 14:08 Dose: 10 mls/hr, 10 mls/hr Sodium Chloride (Normal Saline) 1,000 mls @ 125 mls/hr IV ASDIRECTED [facility] Last Admin: 01/03/19 05:52 Dose: 125 mls/hr Piperacillin/Tazobactam/ (Dextrose 3.375 gm/ Premix) 50 mls @ 100 mls/hr IV Q6H [facility] Last Admin: 01/03/19 07:43 Dose: 100 mls/hr Linezolid 600 mg/ Premix 300 mls @ 300 mls/hr IV Q12H [facility] Dextrose/Lactated Ringer's (Dextrose 5%-Lactated Ringers) 1,000 mls @ 100 mls/ hr IV ASDIRECTED [facility] Lorazepam (Ativan) 0.5 mg IVPUSH Q4H PRN PRN Reason: Nausea/Vomiting Last Admin: 01/02/19 03:52 Dose: 0.5 mg Naloxone HCl (Narcan) 0.1 mg IVPUSH Q5M PRN PRN Reason: RESP RATE LESS THAN 6/MINUTE Ondansetron HCl (Zofran Odt) 4 mg PO Q6H PRN PRN Reason: Nausea able to take PO Ondansetron HCl (Zofran) 4 mg IV Q6H PRN PRN Reason: Nausea/Vomiting Last Admin: 01/02/19 01:46 Dose: 4 mg Pantoprazole Sodium (Protonix Iv) 40 mg IV Q24H [facility] Last Admin: 01/02/19 19:51 Dose: 40 mg Scopolamine (Transderm-Scop) 1.5 mg TOP Q72H [facility] Stop: 01/05/19 09:00 Last Admin: 01/02/19 12:49 Dose: 1.5 mg Sodium Chloride (Saline Flush) 10 ml FLUSH ASDIRECTED PRN PRN Reason: Keep Vein Open Last Admin: 12/31/18 15:10 Dose: 10 ml Discontinued Medications Dexamethasone (Dexamethasone) Confirm Administered Dose 4 mg .ROUTE .STK-MED ONE Stop: 01/02/19 07:54 Erythromycin Ethylsuccinate (Eryped 200) 1,000 mg PO Q3H [facility] Stop: 01/01/19 21:01 Last Admin: 01/01/19 21:16 Dose: 1,000 mg Fentanyl (Sublimaze) 50 mcg IVPUSH ONETIME ONE Stop: 12/31/18 13:51 Last Admin: 12/31/18 14:12 Dose: 50 mcg Fentanyl (Sublimaze) Confirm Administered Dose 250 mcg .ROUTE .STK-MED ONE Stop: 01/02/19 07:53 Glycopyrrolate (Robinul) Confirm Administered Dose 1 mg .ROUTE .STK-MED ONE Stop: 01/02/19 07:54 Sodium Chloride (Normal Saline) 1,000 mls @ 500 mls/hr IV ASDIRECTED [facility] Last Admin: 12/31/18 14:08 Dose: 500 mls/hr Sodium Chloride (Normal Saline) 80 mls @ 3 mls/sec IV ASDIRECTED [facility] Last Admin: 12/31/18 15:11 Dose: 3 mls/sec Dextrose/Lactated Ringer's (Dextrose 5%-Lactated Ringers) 1,000 mls @ 125 mls/ hr IV ASDIRECTED [facility] Last Admin: 01/02/19 04:09 Dose: 125 mls/hr Piperacillin/Tazobactam/ (Dextrose 3.375 gm/ Premix) 50 mls @ 100 mls/hr IV Q6H [facility] Last Admin: 01/02/19 05:41 Dose: 100 mls/hr Sodium Chloride (Normal Saline) Confirm Administered Dose 10 mls @ as directed .ROUTE .STK-MED ONE Stop: 01/02/19 09:03 Lactated Ringer's (Ringers, Lactated) Confirm Administered Dose 1,000 mls @ as directed .ROUTE .STK-MED ONE Stop: 01/02/19 10:27 Iopamidol (Isovue-300 (61%)) 100 ml IV . DIRECTED [facility] Last Admin: 12/31/18 15:10 Dose: 100 ml Lorazepam (Ativan) 0.5 mg IVPUSH ONETIME ONE Stop: 12/31/18 15:55 Last Admin: 12/31/18 16:07 Dose: 0.5 mg Midazolam HCl (Versed 1 Mg/Ml) Confirm Administered Dose 2 mg .ROUTE .STK-MED ONE Stop: 01/02/19 09:12 Neomycin Sulfate (Neomycin Sulfate) 1,000 mg PO Q3H [facility] Stop: 01/01/19 21:01 Last Admin: 01/01/19 21:16 Dose: 1,000 mg Neostigmine Methylsulfate (Neostigmine) Confirm Administered Dose 5 mg .ROUTE .STK-MED ONE Stop: 01/02/19 07:54 Ondansetron HCl (Zofran) 4 mg IVPUSH ONETIME ONE Stop: 12/31/18 13:51 Last Admin: 12/31/18 14:09 Dose: 4 mg Ondansetron HCl (Zofran) Confirm Administered Dose 4 mg .ROUTE .STK-MED ONE Stop: 01/02/19 07:54 Propofol (Diprivan 20 Ml) Confirm Administered Dose 200 mg .ROUTE .STK-MED ONE Stop: 01/02/19 07:54 Rocuronium [place] (Zemuron) Confirm Administered Dose 50 mg .ROUTE .STK-MED ONE Stop: 01/02/19 07:54 Succinylcholine Chloride (Quelicin) Confirm Administered Dose 200 mg .ROUTE .STK -MED ONE Stop: 01/02/19 09:34 - Exam Quality Assessment: No: Supplemental Oxygen General: Alert, Oriented, Cooperative, No Acute Distress Lungs: Clear to Auscultation, Normal Respiratory Effort Cardiovascular: Regular Rate, Regular Rhythm GI/Abdominal Exam: Soft, No Distention, Abnormal Bowel Sounds (hypoactive) Extremities: No Pedal Edema. No: Increased Warmth Psy/Mental Status: Alert, Normal Affect - Problem List & Annotations (1) Small bowel obstruction SNOMED Code(s): 552950322 Code(s): K56.609 - UNSP INTESTNL OBST, UNSP TO PARTIAL VERSUS COMPLETE OBST Status: Acute Current Visit: Yes - Problem List Review Problem List Initiated/Reviewed/Updated: Yes - My Orders Last 24 Hours: My Active Orders 01/02/19 14:00 Piperacillin/Tazobactam/Dext [Zosyn in Dextrose Iso-Osmotic 3.375 GM] 3.375 gm Premix Bag 1 bag IV Q6H 01/03/19 08:45 Dextrose 5%-Lactated Ringers 1,000 ml IV ASDIRECTED 01/04/19 05:00 BASIC METABOLIC PANEL,BMP [CHEM] Timed CBC W/O DIFF,HEMOGRAM [HEME] Timed (1) - Plan Plan:: ASSESSMENT AND PLAN - Cecal abscess - unusual location for the cecum in the LUQ discovered during surgery yesterday. Doing well post-operatively. Pain well controlled. Vitals stable. -Surgical f/u per Dr Valdivia -cultures pending -cont Pip/Tazo -Additional management as discussed below Small bowel obstruction - likely secondary to adhesions complex fluid collection in the left upper quadrant. Resolved after surgery yesterday. -IV fluids -Symptomatic management of pain and nausea Essential hypertension - planning to hold lisinopril until we see how her blood pressure trends. Gluten Intolerance Maintenance issues - - DVT prophylaxis - SCDs - GI prophylaxis - IV PPI - Nutrition - clear liquids, gluten free Disposition - I would anticipate discharge home after the hospital stay Primary care physician - Isaac Pal M.D.
[2019-01-03] MEDS: fentaNYL 2,500 MCG in Sodium Chloride 0.9% 200 ML EPIDUR SCH (09:32)
[2019-01-03] MEDS: Enoxaparin 40 MG/0.4 ML Syringe SUBCUT SCH (09:35)
[2019-01-03] MEDS: Bisacodyl 5 MG Tab PO SCH ×2 (09:35→20:29)
[2019-01-03] MEDS: Docusate Sodium 100 MG Cap PO SCH ×2 (09:35→20:29)
[2019-01-03] MEDS: Linezolid 600 MG in Premix Bag 1 BAG IV SCH ×2 (09:36→21:51)
[2019-01-03] MEDS: Gabapentin 300 MG Cap PO SCH ×2 (13:41→20:29)
--- NOTE | 2019-01-03 16:34 | PN ---
DATE OF SERVICE: 01/03/2019 The patient has been afebrile with stable vital signs. No major problems have been noted overnight. Urine output has been satisfactorily backed down slightly from 125 to 100 mL an hour. Gram stain on the infected mass showed gram-positive cocci. We will add some Zyvox. Antibiotic regimen pending C and S results, which we will be back by Saturday. Otherwise, we will leave the epidural catheter in probably today and probably tomorrow as she gained very good pain control with that. [place] catheter will stay in while the epidural catheter is in place as well. Otherwise, maximize activity with pulmonary toilet. NG output has been minimal and we will discontinue NG tube today. Adeel Valdivia MD /[id number]
[2019-01-03] MEDS: Pantoprazole 40 MG Vial IV SCH (20:29)
[2019-01-04] MEDS: Piperacillin/Tazobactam/Dext 3.375 GM in Premix Bag 1 BAG IV SCH ×4 (02:13→19:15)
[2019-01-04] MEDS: Sodium Chloride 0.9% 1,000 ML IV SCH (05:14)
[2019-01-04] MEDS ORDERED: Dextrose 5%-Lactated Ringers 1,000 ML IV SCH (08:45)
[2019-01-04] MEDS ORDERED: Sodium Chloride 0.9% 1,000 ML IV SCH (08:45)
[2019-01-04] MEDS: Acetaminophen 500 MG Tab PO SCH ×3 (08:57→19:16)
[2019-01-04] MEDS: Bisacodyl 5 MG Tab PO SCH ×2 (08:58→20:15)
[2019-01-04] MEDS: Docusate Sodium 100 MG Cap PO SCH ×2 (08:58→20:15)
[2019-01-04] MEDS: Enoxaparin 40 MG/0.4 ML Syringe SUBCUT SCH (08:58)
[2019-01-04] MEDS: Gabapentin 300 MG Cap PO SCH ×3 (08:59→20:15)
[2019-01-04] MEDS: Lisinopril 10 MG Tab PO SCH (08:59)
[2019-01-04] MEDS: Ibuprofen 400 MG Tab PO SCH ×3 (09:00→21:30)
--- NOTE | 2019-01-04 09:11 | PCM.PN ---
- General Info Date of Service: 01/04/19 Subjective Update: There were no acute events overnight. Pain has been well controlled and she reports no pain at this time. No nausea or vomiting. No fevers. No bowel movement as of yet. Tolerating clear liquids. Functional Status: Reports: Pain Controlled, Tolerating Diet - Review of Systems General: Denies: Fever Gastrointestinal: Denies: Abdominal Pain - Patient Data Vitals - Most Recent: Last Vital Signs Temp 36.5 C 01/04/19 03:00 Pulse 63 01/04/19 07:00 Resp 12 01/04/19 07:00 BP 112/52 L 01/04/19 08:59 Pulse Ox 96 01/04/19 07:00 Weight - Most Recent: 58.287 kg I&O - Last 24 Hours: Intake & Output 01/03/19 01/04/19 01/04/19 22:59 06:59 14:59 Intake Total 2689 1613 Output Total 595 540 Balance 2094 1073 Lab Results Last 24 Hours: Laboratory Results - last 24 hr 01/04/19 01/04/19 Range/Units 04:00 04:00 WBC 7.5 (4.5-11.0) K/uL RBC 3.34 (3.30-5.50) M/uL Hgb 10.4 L (12.0-15.0) g/dL Hct 31.7 L (36.0-48.0) % MCV 95 (80-98) fL MCH 31 (27-31) pg MCHC 33 (32-36) % Plt Count 304 (150-400) K/uL Sodium 134 L (140-148) mmol/L Potassium 3.6 (3.6-5.2) mmol/L Chloride 98 L (100-108) mmol/L Carbon Dioxide 31 (21-32) mmol/L Anion Gap 8.6 (5.0-14.0) mmol/L BUN 7 (7-18) mg/dL Creatinine 0.7 (0.6-1.0) mg/dL Est Cr Clr Drug Dosing 64.12 mL/min Estimated GFR (MDRD) > 60 (>60) Glucose 95 (74-106) mg/dL Calcium 8.4 L (8.5-10.1) mg/dL Jordan Results Last 24 Hours: Microbiology 01/02/19 10:37 Gram Stain - Final Abdominal Fluid - Drainage Wound Culture - Preliminary 01/02/19 09:56 Anaerobic Culture - Preliminary Abdominal Fluid - Aspirate NO GROWTH AFTER 2 DAYS 01/02/19 09:56 Gram Stain - Final Abdominal Fluid - Aspirate Wound Culture - Preliminary NO GROWTH AFTER 2 DAYS 01/02/19 10:37 Anaerobic Culture - Preliminary Abdominal Fluid - Aspirate NO GROWTH AFTER 1 DAY Med Orders - Current: Current Medications Acetaminophen (Tylenol Extra Strength) 1,000 mg PO Q6H [facility] Last Admin: 01/04/19 08:57 Dose: 1,000 mg Albuterol (Proventil Neb Soln) 2.5 mg NEB Q4H PRN PRN Reason: Shortness Of Breath/wheezing Bisacodyl (Dulcolax) 10 mg PO BID [facility] Last Admin: 01/04/19 08:58 Dose: 10 mg Diphenhydramine HCl (Benadryl) 25 mg IVPUSH Q4H PRN PRN Reason: Itching Docusate Sodium (Colace) 100 mg PO BID [facility] Last Admin: 01/04/19 08:58 Dose: 100 mg Enoxaparin Sodium (Lovenox) 40 mg SUBCUT DAILY [facility] Last Admin: 01/04/19 08:58 Dose: 40 mg Fentanyl (Sublimaze) 25 mcg IVPUSH Q2H PRN PRN Reason: Pain (severe 7-10) Last Admin: 01/02/19 01:46 Dose: 25 mcg Gabapentin (Neurontin) 300 mg PO TID [facility] Last Admin: 01/04/19 08:59 Dose: 300 mg Fentanyl 2,500 mcg/ Sodium (Chloride) 250 mls @ 0 mls/hr EPIDUR TITRATE [facility]; Protocol Last Admin: 01/03/19 09:32 Dose: 10 mls/hr, 10 mls/hr Piperacillin/Tazobactam/ (Dextrose 3.375 gm/ Premix) 50 mls @ 100 mls/hr IV Q6H [facility] Last Admin: 01/04/19 08:08 Dose: 100 mls/hr Linezolid 600 mg/ Premix 300 mls @ 300 mls/hr IV Q12H [facility] Last Admin: 01/03/19 21:51 Dose: 300 mls/hr Sodium Chloride (Normal Saline) 1,000 mls @ 25 mls/hr IV ASDIRECTED [facility] Ibuprofen (Motrin) 400 mg PO Q6H [facility] Last Admin: 01/04/19 09:00 Dose: 400 mg Lisinopril (Prinivil) 10 mg PO DAILY [facility] Last Admin: 01/04/19 08:59 Dose: 10 mg Lorazepam (Ativan) 0.5 mg IVPUSH Q4H PRN PRN Reason: Nausea/Vomiting Last Admin: 01/02/19 03:52 Dose: 0.5 mg Naloxone HCl (Narcan) 0.1 mg IVPUSH Q5M PRN PRN Reason: RESP RATE LESS THAN 6/MINUTE Ondansetron HCl (Zofran Odt) 4 mg PO Q6H PRN PRN Reason: Nausea able to take PO Ondansetron HCl (Zofran) 4 mg IV Q6H PRN PRN Reason: Nausea/Vomiting Last Admin: 01/02/19 01:46 Dose: 4 mg Pantoprazole Sodium (Protonix Iv) 40 mg IV Q24H [facility] Last Admin: 01/03/19 20:29 Dose: 40 mg Scopolamine (Transderm-Scop) 1.5 mg TOP Q72H [facility] Stop: 01/05/19 09:00 Last Admin: 01/02/19 12:49 Dose: 1.5 mg Sodium Chloride (Saline Flush) 10 ml FLUSH ASDIRECTED PRN PRN Reason: Keep Vein Open Last Admin: 12/31/18 15:10 Dose: 10 ml Discontinued Medications Acetaminophen (Tylenol) 650 mg PO Q4H PRN PRN Reason: Pain (Mild 1-3)/fever Dexamethasone (Dexamethasone) Confirm Administered Dose 4 mg .ROUTE .STK-MED ONE Stop: 01/02/19 07:54 Erythromycin Ethylsuccinate (Eryped 200) 1,000 mg PO Q3H [facility] Stop: 01/01/19 21:01 Last Admin: 01/01/19 21:16 Dose: 1,000 mg Fentanyl (Sublimaze) 50 mcg IVPUSH ONETIME ONE Stop: 12/31/18 13:51 Last Admin: 12/31/18 14:12 Dose: 50 mcg Fentanyl (Sublimaze) Confirm Administered Dose 250 mcg .ROUTE .STK-MED ONE Stop: 01/02/19 07:53 Glycopyrrolate (Robinul) Confirm Administered Dose 1 mg .ROUTE .STK-MED ONE Stop: 01/02/19 07:54 Sodium Chloride (Normal Saline) 1,000 mls @ 500 mls/hr IV ASDIRECTED [facility] Last Admin: 12/31/18 14:08 Dose: 500 mls/hr Sodium Chloride (Normal Saline) 80 mls @ 3 mls/sec IV ASDIRECTED [facility] Last Admin: 12/31/18 15:11 Dose: 3 mls/sec Dextrose/Lactated Ringer's (Dextrose 5%-Lactated Ringers) 1,000 mls @ 125 mls/ hr IV ASDIRECTED [facility] Last Admin: 01/02/19 04:09 Dose: 125 mls/hr Piperacillin/Tazobactam/ (Dextrose 3.375 gm/ Premix) 50 mls @ 100 mls/hr IV Q6H [facility] Last Admin: 01/02/19 05:41 Dose: 100 mls/hr Sodium Chloride (Normal Saline) Confirm Administered Dose 10 mls @ as directed .ROUTE .STK-MED ONE Stop: 01/02/19 09:03 Lactated Ringer's (Ringers, Lactated) Confirm Administered Dose 1,000 mls @ as directed .ROUTE .STK-MED ONE Stop: 01/02/19 10:27 Sodium Chloride (Normal Saline) 1,000 mls @ 125 mls/hr IV ASDIRECTED [facility] Last Admin: 01/04/19 05:14 Dose: 125 mls/hr Dextrose/Lactated Ringer's (Dextrose 5%-Lactated Ringers) 1,000 mls @ 100 mls/ hr IV ASDIRECTED [facility] Dextrose/Lactated Ringer's (Dextrose 5%-Lactated Ringers) 1,000 mls @ 25 mls/ hr IV ASDIRECTED [facility] Iopamidol (Isovue-300 (61%)) 100 ml IV . DIRECTED [facility] Last Admin: 12/31/18 15:10 Dose: 100 ml Lorazepam (Ativan) 0.5 mg IVPUSH ONETIME ONE Stop: 12/31/18 15:55 Last Admin: 12/31/18 16:07 Dose: 0.5 mg Midazolam HCl (Versed 1 Mg/Ml) Confirm Administered Dose 2 mg .ROUTE .STK-MED ONE Stop: 01/02/19 09:12 Neomycin Sulfate (Neomycin Sulfate) 1,000 mg PO Q3H [facility] Stop: 01/01/19 21:01 Last Admin: 01/01/19 21:16 Dose: 1,000 mg Neostigmine Methylsulfate (Neostigmine) Confirm Administered Dose 5 mg .ROUTE .STK-MED ONE Stop: 01/02/19 07:54 Ondansetron HCl (Zofran) 4 mg IVPUSH ONETIME ONE Stop: 12/31/18 13:51 Last Admin: 12/31/18 14:09 Dose: 4 mg Ondansetron HCl (Zofran) Confirm Administered Dose 4 mg .ROUTE .STK-MED ONE Stop: 01/02/19 07:54 Propofol (Diprivan 20 Ml) Confirm Administered Dose 200 mg .ROUTE .STK-MED ONE Stop: 01/02/19 07:54 Rocuronium [place] (Zemuron) Confirm Administered Dose 50 mg .ROUTE .STK-MED ONE Stop: 01/02/19 07:54 Succinylcholine Chloride (Quelicin) Confirm Administered Dose 200 mg .ROUTE .STK -MED ONE Stop: 01/02/19 09:34 - Exam Quality Assessment: No: Supplemental Oxygen General: Alert, Oriented, Cooperative, No Acute Distress Lungs: Normal Respiratory Effort GI/Abdominal Exam: Soft, No Distention Extremities: No Pedal Edema Skin: Warm, Dry Psy/Mental Status: Alert, Normal Affect - Problem List & Annotations (1) Small bowel obstruction SNOMED Code(s): 793158224 Code(s): K56.609 - UNSP INTESTNL OBST, UNSP TO PARTIAL VERSUS COMPLETE OBST Status: Acute Current Visit: Yes - Problem List Review Problem List Initiated/Reviewed/Updated: Yes - My Orders Last 24 Hours: My Active Orders 01/04/19 08:00 Acetaminophen [Tylenol Extra Strength] 1,000 mg PO Q6H 01/04/19 08:45 Sodium Chloride 0.9% [Normal Saline] 1,000 ml IV ASDIRECTED 01/05/19 05:00 BASIC METABOLIC PANEL,BMP [CHEM] Timed CBC W/O DIFF,HEMOGRAM [HEME] Timed (1) - Plan Plan:: ASSESSMENT AND PLAN - Cecal abscess - unusual location for the cecum in the LUQ discovered during surgery 01/02. Doing well post-operatively. Pain well controlled. Vitals stable. Still has fentanyl epidural. -Surgical f/u per Dr Valdivia -cultures pending -cont Pip/Tazo and linezolid -Additional management as discussed below Small bowel obstruction - likely secondary to adhesions complex fluid collection in the left upper quadrant. Resolved after surgery. -Gentle IV fluids -Symptomatic management of pain and nausea Essential hypertension - lisinopril restarted today. Gluten Intolerance Maintenance issues - - DVT prophylaxis - SCDs - GI prophylaxis - PPI - Nutrition - clear liquids, gluten free Disposition - I would anticipate discharge home after the hospital stay Primary care physician - Isaac Pal M.D.
[2019-01-04] MEDS: Linezolid 600 MG in Premix Bag 1 BAG IV SCH ×2 (09:38→21:30)
[2019-01-04] MEDS: Ondansetron 4 MG Tab.DIS PO PRN (10:34)
[2019-01-04] MEDS: fentaNYL 2,500 MCG in Sodium Chloride 0.9% 200 ML EPIDUR SCH (11:35)
[2019-01-04] MEDS: Pantoprazole 40 MG Vial IV SCH (19:16)
[2019-01-05] MEDS: Acetaminophen 500 MG Tab PO SCH ×2 (02:47→08:18)
[2019-01-05] MEDS: Piperacillin/Tazobactam/Dext 3.375 GM in Premix Bag 1 BAG IV SCH ×4 (02:47→19:47)
[2019-01-05] MEDS: Ibuprofen 400 MG Tab PO SCH (03:00)
[2019-01-05] MEDS ORDERED: fentaNYL 100 MCG/2 ML SDV IVPUSH PRN (08:05)
[2019-01-05] MEDS: Gabapentin 300 MG Cap PO SCH ×3 (08:18→22:10)
[2019-01-05] MEDS: Docusate Sodium 100 MG Cap PO SCH ×3 (08:18→23:33)
[2019-01-05] MEDS: Bisacodyl 5 MG Tab PO SCH ×3 (08:18→23:33)
[2019-01-05] MEDS: Lisinopril 10 MG Tab PO SCH (08:19)
[2019-01-05] MEDS: Enoxaparin 40 MG/0.4 ML Syringe SUBCUT SCH (08:26)
[2019-01-05] MEDS ORDERED: Potassium Chloride Riders 40 MEQ in Premix Bag 1 BAG IV ONE (08:37)
--- NOTE | 2019-01-05 09:00 | OR ---
DATE OF PROCEDURE: 01/02/2019 SURGEON: Stewart Leblanc MD PROCEDURES: 1. Resection of the cecum and terminal ileum (29058). 2. Resection of omentum (82109). 3. Drainage of mild peritonitis, abdomen (37070). COMPLICATIONS: None. ONLINE TUTOR: None. ANESTHETIC: Epidural/general. INDICATIONS: A pleasant 73-year-old female who was admitted with abdominal pain. She underwent a CT scan and the patient was noted to have a mass which was noted in the left abdomen, diverticulitis versus masses. The patient was initially treated nonoperatively, but had obstipation and bowel obstruction requiring surgical intervention. FINDINGS: 1. Infected abscess-type phlegmon of the cecum. 2. Functional small-bowel obstruction. 3. Approximately 200 mL of rebolledo-colored fluid (cultured). Of note, this culture was separate from the abscess culture. 4. Distended bowel with obvious transition point in the small bowel, mid to distal ileum. RISKS: Risks, benefits, alternatives, and limitations including, but not limited to infection, bleeding, possibility of ostomy, abscess formation, cardiovascular compromise, and other risks not listed here were explained to the patient who wished to proceed. PROCEDURE IN DETAIL: The patient was placed in supine position. A midline abdominal incision was made. Two Kochers were used to elevate the fascial wall which was entered sharply. No evidence of enterotomy or injury was noted. The small bowel was followed back and in the distal to mid ileum. The bowel was twisted upon itself in a functional closed loop bowel obstruction. This was due to adhesions secondary to the abscess and inflammatory process. This was reduced without difficulty and that area of small bowel did not have any serosal injury nor was it resected. Stool freely flowed through this without difficulty. The mass in the left abdomen noticed on CT scan was actually the cecum which had been rotated. This had an abscess associated with it. This was cultured. Prior to this, the patient had a peritonitis fluid collection in the pelvis. This was also cultured separately, aerobic and anaerobically. The cecal mass was most consistent with abscess or diverticulitis. Therefore, it was determined to resect this. This was resected in a [id number] functional end-to-end anastomosis fashion. Rebolledo load staplers were used to transect the small bowel and the ascending colon. This was performed by identifying the large vascular arcade and preserving it with respect to the right colon vascularity. This was transected using rebolledo load staplers. The mesentery was transected with vascular pantera. This was opened on the back table, was noted to be a definite abscess, and will be sent for followup pathology. The small bowel was opened and decompressed. This was on the side of the table not within the abdomen. Approximately 500 mL of fluid was able to be removed from this. The rebolledo load staplers were then used to create a double anastomosis. Sutures were used to reinforce this. Four Kochers were used to control the bowel defect and subsequently transected again. This double anastomosis had good flow through it. The mesenteric defect was closed with Vicryl sutures. Gown and gloves were changed for a third time. Everything was thoroughly irrigated again with warm normal saline. Prior to anastomotic completion, the entire small bowel was run in its entirety. The sigmoid colon did not show any defects. None of the remaining bowel was noted to have any abnormality. The liver was swept. There was no nodularity. Tisseel was then used to reinforce the anastomosis. Two 10 flat Marquez-Collins drains were placed. The drain that was lateral would be placed in the pelvis. The drain from the skin medial would be placed in the area of abscess on the left side. The abdomen was irrigated again, especially in the liver, area of the spleen, and pelvis. Fascia was closed with #1 Vicryl. Subcutaneous tissue irrigated and closed with pantera. Dressings were placed. The patient tolerated the procedure well. Stewart Leblanc MD /[id number]
[2019-01-05] MEDS: Ibuprofen 600 MG Tab PO SCH ×2 (09:04→15:29)
[2019-01-05] MEDS: Lactulose Soln 10 GM/15 ML 15 ML UD Cup PO SCH ×3 (09:05→23:33)
[2019-01-05] MEDS: Potassium Chloride 20 MEQ in Premix Bag 1 BAG IV SCH ×2 (09:07→11:18)
--- NOTE | 2019-01-05 09:57 | PN ---
DATE OF SERVICE: 01/05/2019 SUBJECTIVE: The patient continues to slowly improve. She has no nausea, vomiting, shortness of breath, or chest pain. Ambulating in the morales. OBJECTIVE: VITAL SIGNS: Stable. She is afebrile. CARDIOVASCULAR: Regular rhythm and rate. RESPIRATORY: Lungs are clear to auscultation bilaterally. ABDOMEN: Mild distention. Incision is healing well without evidence of infection or drainage. Drain output is less than 50 and is serosanguineous. LABORATORY RESULTS: Show a slightly low potassium. ASSESSMENT: Status post right hemicolectomy. PLAN: 1. GI: We will keep the patient on clear liquids at this time. We will also start Entereg today. In addition, we will order a 2-view flat and upright in the a.m. 2. Pain management: We will discontinue epidural today. The patient has been on Lovenox greater than 4 hours. Nurses have been instructed to hold Lovenox due to . We will start the patient on scheduled ibuprofen in conjunction with Seroquel and fentanyl on a p.r.n. basis. 3. Lovenox, SCDs. Also please see above. 4. Infectious disease: The patient remains on Zosyn as she had gram-positive, small amount come out of one of her cultures. Sensitivities are still pending. 5. General disposition: The patient is resting comfortably. No specific concerns. We will discontinue telemetry today. Stewart Leblanc MD /[id number]
[2019-01-05] MEDS: Linezolid 600 MG in Premix Bag 1 BAG IV SCH ×2 (10:26→22:10)
[2019-01-05] MEDS: Pantoprazole 40 MG Tab.CR PO SCH (22:10)
[2019-01-05] MEDS ORDERED: Bisacodyl 10 MG Supp RECTAL ONE (23:58)
[2019-01-06] MEDS: Ibuprofen 600 MG Tab PO SCH ×3 (02:15→15:46)
[2019-01-06] MEDS: Ondansetron 4 MG/2 ML SDV IV PRN (02:26)
[2019-01-06] MEDS: Piperacillin/Tazobactam/Dext 3.375 GM in Premix Bag 1 BAG IV SCH ×4 (02:26→19:59)
--- NOTE | 2019-01-06 05:25 | CRLCR ---
Indication: Distension. Technique: AP supine and upright views of the abdomen and pelvis were obtained. Comparison: January 01, 2019. Findings: Dilated loops of small and large bowel are identified. Air-fluid levels are identified on the upright view. No free air is identified. Vertical skin pantera are identified in the midline. A radiopacity is identified in the left upper quadrant. Impression: Dilated loops of small and large bowel. Air-fluid levels are present. No free air is identified Dictated by Corazon Dean MD @ Jan 06 2019 5:23AM Signed by Dr. Corazon Dean @ Jan 06 2019 5:24AM
[2019-01-06] MEDS ORDERED: Dextrose 5%-0.45% NaCl 1,000 ML IV SCH (08:30)
[2019-01-06] MEDS: Lactulose Soln 10 GM/15 ML 15 ML UD Cup PO SCH ×2 (08:48→20:11)
[2019-01-06] MEDS: Gabapentin 300 MG Cap PO SCH ×3 (08:51→20:11)
[2019-01-06] MEDS: Lisinopril 10 MG Tab PO SCH (08:51)
[2019-01-06] MEDS: Docusate Sodium 100 MG Cap PO SCH (08:59)
[2019-01-06] MEDS: Bisacodyl 5 MG Tab PO SCH (08:59)
[2019-01-06] MEDS ORDERED: Bisacodyl 5 MG Tab PO PRN (09:17)
[2019-01-06] MEDS ORDERED: Docusate Sodium 100 MG Cap PO PRN (09:18)
[2019-01-06] MEDS: Enoxaparin 40 MG/0.4 ML Syringe SUBCUT SCH (09:46)
[2019-01-06] MEDS: Linezolid 600 MG in Premix Bag 1 BAG IV SCH (09:46)
--- NOTE | 2019-01-06 11:34 | PN ---
DATE OF SERVICE: 01/06/2019 SUBJECTIVE: The patient remains with an ileus today. Not passing any gas. No nausea, vomiting, shortness of breath, or chest pain. OBJECTIVE: VITAL SIGNS: Stable. She is afebrile. CARDIOVASCULAR: Regular rate and rhythm. RESPIRATORY: Lungs are clear to auscultation bilaterally. ABDOMEN: Distended. No significant pain, rebound, or guarding with palpation. ASSESSMENT AND PLAN: Status post colon resection. 1. Gastrointestinal: The patient has possibility of an ileus as she is dilated. Air- fluid levels of small and large bowel noted on plain film. We did replace her potassium yesterday. We will check her electrolytes in the morning. As far as the role of the CT scan, the patient has symptoms consistent with ileus, though is not exhibiting any symptoms of bowel obstruction. Therefore, we will defer the CT scan at this time. As far as diet, she is to sip clear liquids at this point. 2. Infectious Disease: No new culture results per nursing staff this morning. Continue antibiotics. Drains are serosanguineous in nature. She is afebrile and has a normal white blood cell count. 3. Activity: Lovenox is continuing. Activity is highly encouraged. 4. Fluid, Electrolyte, Nutrition: The patient will be evaluated in the next day or 2 for a possible TPN. We will also continue with small amount of clear liquids. Stewart Leblanc MD /[id number]
[2019-01-06] MEDS: 1: AA 5%/Calcium/D15W/Lytes 1,000 ML with MVI, Adult with Vitamin K 10 ML, Chromium/Copp IV SCH ×3 (17:17)
[2019-01-06] MEDS ORDERED: Fat Emulsion 100 ML IV ONE (18:00)
[2019-01-06] MEDS: Pantoprazole 40 MG Tab.CR PO SCH (20:11)
[2019-01-06] MEDS: Acetaminophen/HYDROcodone 325-5 MG Tab PO PRN (20:13)
[2019-01-07] MEDS: Ibuprofen 600 MG Tab PO SCH ×3 (01:10→15:14)
[2019-01-07] MEDS: Piperacillin/Tazobactam/Dext 3.375 GM in Premix Bag 1 BAG IV SCH ×4 (01:11→20:47)
[2019-01-07] MEDS: Acetaminophen/HYDROcodone 325-5 MG Tab PO PRN (02:11)
[2019-01-07] MEDS: 1: AA 5%/Calcium/D15W/Lytes 1,000 ML with MVI, Adult with Vitamin K 10 ML, Chromium/Copp IV SCH ×6 (08:40→23:05)
[2019-01-07] MEDS: Lisinopril 10 MG Tab PO SCH (08:40)
[2019-01-07] MEDS: Lactulose Soln 10 GM/15 ML 15 ML UD Cup PO SCH ×2 (08:40→20:47)
[2019-01-07] MEDS: Gabapentin 300 MG Cap PO SCH ×3 (08:41→20:48)
[2019-01-07] MEDS: Enoxaparin 40 MG/0.4 ML Syringe SUBCUT SCH (08:41)
[2019-01-07] MEDS: Pantoprazole 40 MG Tab.CR PO SCH (20:48)
[2019-01-08] MEDS: Ibuprofen 600 MG Tab PO SCH ×3 (01:31→18:00)
[2019-01-08] MEDS: Piperacillin/Tazobactam/Dext 3.375 GM in Premix Bag 1 BAG IV SCH ×4 (02:16→20:01)
[2019-01-08] MEDS: Acetaminophen/HYDROcodone 325-5 MG Tab PO PRN ×2 (02:23→07:46)
--- NOTE | 2019-01-08 03:48 | CRLCR ---
INDICATION: Distention. COMPARISON: 01/06/2019 abdominal radiographs. FINDINGS/IMPRESSION: Clumped suture material in the right mid abdomen, as before. Midline skin pantera. Surgical drain in the left abdomen, unchanged. No significant change in abnormal gaseous distention of the bowel throughout the upper and mid abdomen with multiple air fluid levels, consistent with bowel obstruction versus severe postoperative ileus. No free air identified. Dictated by Michele Olivo MD @ 01/08/2019 3:46:11 AM Dictated by: Michele Olivo MD @ 01/08/2019 03:46:20 (Electronically Signed)
[2019-01-08] MEDS ORDERED: Central Total Parenteral Nutrition Bag IV SCH (08:15)
[2019-01-08] MEDS ORDERED: Potassium Chloride 40 MEQ, Lidocaine 1% 2 ML in Sodium Chloride 0.9% 100 ML IV SCH (09:00)
[2019-01-08] MEDS: Lactulose Soln 10 GM/15 ML 15 ML UD Cup PO SCH ×2 (09:13→21:47)
[2019-01-08] MEDS: Lisinopril 10 MG Tab PO SCH (09:21)
[2019-01-08] MEDS: Gabapentin 300 MG Cap PO SCH ×3 (09:21→21:47)
[2019-01-08] MEDS: Enoxaparin 40 MG/0.4 ML Syringe SUBCUT SCH (09:22)
[2019-01-08] MEDS ORDERED: Sodium Chloride 0.9% 10 ML Syringe FLUSH PRN (11:17)
[2019-01-08] MEDS ORDERED: Iopamidol 500 ML BOTTLE IV ONE (11:17)
[2019-01-08] MEDS ORDERED: Iopamidol 612 MG/ML 30 ML SDV PO ONE (11:17)
--- NOTE | 2019-01-08 12:36 | CRLCT ---
INDICATION: Ileus. TECHNIQUE: CT abdomen and pelvis acquired with 87 cc Isovue-300 IV contrast. Oral contrast was administered. COMPARISON: CT M/pelvis 12/31/2018. FINDINGS: New postoperative changes of the abdomen with bowel anastomosis in the right lower abdomen posteriorly near the cecum, and an anastomosis involving the descending colon in the left abdomen. The previously seen indeterminate left abdominal mass like structure is no longer seen. Left upper quadrant percutaneous drain. Anterior abdominal wall surgical pantera. The colon distal to the decent colon anastomosis is decompressed. There appears to be upstream dilation of the colon from the level of the anastomosis with air-fluid levels. Additionally, there are multiple loops of dilated mid and distal small bowel with air-fluid levels. No dilation of proximal small bowel loops. No discrete transition point is identified in the small bowel. No intraperitoneal free air. No pneumatosis. Small amount of free fluid in the pelvis. The liver, gallbladder, spleen, pancreas, kidneys, and adrenal glands are negative. Symmetric nephrograms. No hydronephrosis. The urinary bladder is very distended. Small amount of gas in the bladder may be due to recent instrumentation. Body wall edema. Aortoiliac vascular calcifications. No lymphadenopathy. Degenerative changes of the spine. Tiny bilateral pleural effusions and bibasilar atelectasis. IMPRESSION: 1. Interval postoperative changes in the abdomen with new bowel anastomoses in the right abdomen near the cecum and in the left abdomen about the descending colon. 2. The previously seen indeterminate masslike structure in the left abdomen is no longer seen. 3. There is upstream dilation of the colon from the level of the descending colon anastomosis, as well as multiple loops of dilated mid and distal small bowel with air-fluid levels. Findings are worrisome for obstruction at the level of the descending colon anastomosis. Recommend further evaluation with fluoroscopic enema. 4. Very distended urinary bladder. Recommend catheterization. Please note that all CT scans at this facility use dose modulation, iterative reconstruction, and/or weight-based dosing when appropriate to reduce radiation dose to as low as reasonably achievable. Dictated by Rosana Adan MD @ Jan 08 2019 12:16PM Signed by Dr. Rosana Adan @ Jan 08 2019 12:34PM
[2019-01-08] MEDS: 1: AA 5%/Calcium/D15W/Lytes 1,000 ML with MVI, Adult with Vitamin K 10 ML, Chromium/Copp IV SCH ×3 (15:22)
--- NOTE | 2019-01-08 16:12 | CRLCR ---
Indication: Follow-up from CT. Technique: Abdomen 2 view. Comparison: Abdominal radiograph and CT abdomen/pelvis 01/08/2019. Findings: Again seen are multiple dilated loops of small bowel and colon which may represent obstruction or ileus. No definite free air. No pneumatosis. The enteric contrast ingested during CT is not well seen radiographically. Left upper quadrant surgical drain. Midline skin pantera. Surgical suture in the right mid abdomen. Contrast in the bladder. Tiny right pleural effusion. CVC tip projected over the right heart. Degenerative changes of the spine and hips. Impression: Multiple dilated loops of small bowel and colon which may represent obstruction or ileus. Dictated by Rosana Adan MD @ Jan 08 2019 4:05PM Signed by Dr. Rosana Adan @ Jan 08 2019 4:10PM
[2019-01-08] MEDS: Pantoprazole 40 MG Tab.CR PO SCH (21:47)
[2019-01-09] MEDS: Ibuprofen 600 MG Tab PO SCH ×4 (01:00→23:12)
[2019-01-09] MEDS: Piperacillin/Tazobactam/Dext 3.375 GM in Premix Bag 1 BAG IV SCH ×4 (01:01→20:30)
[2019-01-09] MEDS: 1: AA 5%/Calcium/D15W/Lytes 1,000 ML with MVI, Adult with Vitamin K 10 ML, Chromium/Copp IV SCH ×3 (06:45)
[2019-01-09] MEDS ORDERED: Central Total Parenteral Nutrition Bag IV SCH (08:30)
[2019-01-09] MEDS: Gabapentin 300 MG Cap PO SCH ×3 (08:38→21:46)
[2019-01-09] MEDS: Enoxaparin 40 MG/0.4 ML Syringe SUBCUT SCH (08:38)
[2019-01-09] MEDS: Lisinopril 10 MG Tab PO SCH (08:39)
[2019-01-09] MEDS: Lactulose Soln 10 GM/15 ML 15 ML UD Cup PO SCH ×2 (08:40→21:46)
--- NOTE | 2019-01-09 11:05 | PN ---
DATE OF SERVICE: 01/09/2019 SUBJECTIVE: The patient has significantly changed overnight. She has now had three bowel movements in the last 24 hours. She describes these bowel movements as large. She also subjectively feels less abdominal pressure and overall feels improvement. OBJECTIVE: VITAL SIGNS: Stable. CARDIOVASCULAR: Regular rhythm and rate. RESPIRATORY: Lungs clear to auscultation bilaterally. ABDOMEN: Still distended, however, less distended at this point. ASSESSMENT: Status post right colon resection. PLAN: 1. GI. We will continue to await improved abdominal-GI function. We will continue her TPN. However, this shows overall significant change in the last 24 hours. 2. Infectious disease. The patient remains on antibiotics, is doing quite well. Slightly elevated white blood cell count, however, no other abnormalities. 3. Fluid, electrolyte, nutrition. Potassium has now been addressed on a routine basis with the TPN. 4. Prophylaxis. The patient remains on Lovenox and SCDs. Stewart Leblanc MD /[id number]
[2019-01-09] MEDS: Pantoprazole 40 MG Tab.CR PO SCH (21:46)
[2019-01-10] MEDS: 1: AA 5%/Calcium/D15W/Lytes 1,000 ML with MVI, Adult with Vitamin K 10 ML, Chromium/Copp IV SCH ×6 (01:59→18:50)
[2019-01-10] MEDS: Piperacillin/Tazobactam/Dext 3.375 GM in Premix Bag 1 BAG IV SCH ×4 (02:00→20:02)
[2019-01-10] MEDS: Ibuprofen 600 MG Tab PO SCH ×3 (08:48→23:18)
[2019-01-10] MEDS: Enoxaparin 40 MG/0.4 ML Syringe SUBCUT SCH (08:52)
[2019-01-10] MEDS: Gabapentin 300 MG Cap PO SCH ×3 (08:53→21:29)
[2019-01-10] MEDS: Lisinopril 10 MG Tab PO SCH (08:53)
--- NOTE | 2019-01-10 10:10 | PN ---
DATE OF SERVICE: 01/10/2019 SUBJECTIVE: The patient is doing very well today. The patient is not having multiple solid bowel movements. OBJECTIVE: VITAL SIGNS: Stable. CARDIOVASCULAR: Regular rhythm and rate. RESPIRATORY: Lungs are clear to auscultation bilaterally. ABDOMEN: Less distended. Incision healing well. ASSESSMENT: Status post right hemicolectomy. PLAN: Continue TPN. We will start her on a clear liquid diet today and advance as tolerated. Stewart Leblanc MD /[id number]
[2019-01-10] MEDS: Lactulose Soln 10 GM/15 ML 15 ML UD Cup PO SCH ×2 (10:30→21:28)
[2019-01-10] MEDS: Pantoprazole 40 MG Tab.CR PO SCH (21:29)
[2019-01-11] MEDS: Piperacillin/Tazobactam/Dext 3.375 GM in Premix Bag 1 BAG IV SCH ×4 (02:54→19:47)
[2019-01-11] MEDS ORDERED: 1: AA 5%/Calcium/D15W/Lytes 1,000 ML with MVI, Adult with Vitamin K 10 ML, Chromium/Copp IV SCH ×3 (06:00)
[2019-01-11] MEDS: Ibuprofen 600 MG Tab PO SCH ×3 (08:04→23:32)
[2019-01-11] MEDS: Enoxaparin 40 MG/0.4 ML Syringe SUBCUT SCH (08:05)
[2019-01-11] MEDS: Gabapentin 300 MG Cap PO SCH ×3 (08:05→20:44)
[2019-01-11] MEDS: Lactulose Soln 10 GM/15 ML 15 ML UD Cup PO SCH ×2 (08:05→20:44)
[2019-01-11] MEDS: Lisinopril 10 MG Tab PO SCH (08:06)
--- NOTE | 2019-01-11 13:05 | PN ---
DATE OF SERVICE: 01/11/2019 SUBJECTIVE: The patient continues to improve. Having multiple bowel movements. Pain is well controlled without any nausea or vomiting. OBJECTIVE: VITAL SIGNS: Stable. She is afebrile. CARDIOVASCULAR: Regular rhythm and rate. RESPIRATORY: Lungs clear to auscultation bilaterally. ABDOMEN: Bowel sounds positive. Incision healing well. ASSESSMENT: Status post right hemicolectomy. PLAN: The patient will continue to improve. We will evaluate for discharge tomorrow. Stewart Leblanc MD /[id number]
[2019-01-11] MEDS: Pantoprazole 40 MG Tab.CR PO SCH (20:44)
[2019-01-12] MEDS: Ondansetron 4 MG Tab.DIS PO PRN (01:05)
[2019-01-12] MEDS: Piperacillin/Tazobactam/Dext 3.375 GM in Premix Bag 1 BAG IV SCH ×2 (01:06→09:12)
--- NOTE | 2019-01-12 09:05 | PN ---
DATE OF SERVICE: 01/12/2019 SUBJECTIVE: The patient continues to improve significantly daily. Pain is well controlled with Motrin. No nausea, vomiting, shortness of breath, or chest pain. Having normal well- formed bowel movements. OBJECTIVE: VITAL SIGNS: Vital signs are stable. CARDIOVASCULAR: Regular rhythm and rate. RESPIRATORY: Lungs are clear to auscultation bilaterally. SKIN: Incision healing well. ASSESSMENT AND PLAN: Status post right hemicolectomy. PLAN: The patient will be discharged today. Please see discharge summary for further details. Stewart Leblanc MD /[id number]
[2019-01-12] MEDS: Lactulose Soln 10 GM/15 ML 15 ML UD Cup PO SCH (09:09)
[2019-01-12] MEDS: Gabapentin 300 MG Cap PO SCH (09:12)
[2019-01-12] MEDS: Ibuprofen 600 MG Tab PO SCH (09:12)
[2019-01-12] MEDS: Lisinopril 10 MG Tab PO SCH (09:13)
[2019-01-12] MEDS: Enoxaparin 40 MG/0.4 ML Syringe SUBCUT SCH (09:14)
--- NOTE | 2019-01-12 11:54 | DISCH ---
DISCHARGE DIAGNOSES: Status post right hemicolectomy. SUMMARY OF HOSPITAL COURSE: A pleasant 73-year-old female, who was admitted and evaluated due to a large mass in her left lower quadrant. This turned out be the cecum, which was consistent with large phlegmon type mass at site of known diverticulitis with a left-sided cecum. She underwent uneventful hemicolectomy. Unfortunately, the patient developed a postoperative ileus, however, this resolved without further intervention. FOLLOWUP: With Surgery in 7 to 14 days. ACTIVITY: No lifting greater than 30 pounds x30 days. DISCHARGE MEDICATIONS: Please see MAR; however, no narcotics will be prescribed.
--- NOTE | 2019-01-13 17:58 | PN ---
DATE OF SERVICE: 01/07/2019 SUBJECTIVE: The patient continues to have an ileus. Very limited gas passing. OBJECTIVE: VITAL SIGNS: Stable. CARDIOVASCULAR: Regular rhythm and rate. RESPIRATORY: Lungs are clear to auscultation bilaterally. ABDOMEN: Distended. No significant rebound. ASSESSMENT: Status post colon resection. PLAN: 1. GI: The patient has developed an ileus. We will recheck her fluid and electrolytes intermittently and work on evaluation. 2. Infectious Disease: We will continue antibiotics at this time. Essentially no specific changes. Stewart Leblanc MD /[id number]
--- NOTE | 2019-01-13 20:39 | PN ---
DATE OF SERVICE: 01/08/2019 SUBJECTIVE: The patient is doing well. Remains with an ileus today. Not passing significant amount of gas. OBJECTIVE: VITAL SIGNS: Stable. CARDIOVASCULAR: Regular rhythm and rate. RESPIRATORY: Lungs are clear to auscultation bilaterally. ABDOMEN: Distended but appropriate. ASSESSMENT: Small-bowel ileus. PLAN: We will continue to work on TPN and await GI activity. Stewart Leblanc MD /[id number]
== END 2019-01-12 11:31 | disposition home or self-care (01) | DRG 329 ==
LOC: JP.ED 13:19 → JP.ICU 15:56 → JP.MS 01-04 18:50
PROVIDERS: ADMIT Internal Medicine; ATTEND Hospitalist
PROC: 0DTH0ZZ Resection of Cecum, Open Approach (ICD-10-PCS; principal; 2019-01-02)
PROC: 0DS80ZZ Reposition Small Intestine, Open Approach (ICD-10-PCS; 2019-01-02)
PROC: 0W9G0ZZ Drainage of Peritoneal Cavity, Open Approach (ICD-10-PCS; 2019-01-02)
PROC: 0DBB0ZZ Excision of Ileum, Open Approach (ICD-10-PCS; 2019-01-02)
DX: K56.51 Intestinal adhesions [bands], with partial obstruction (principal); K56.609 Unspecified intestinal obstruction, unspecified as to partial versus complete obstruction; K63.0 Abscess of intestine; R10.84 Generalized abdominal pain; R11.0 Nausea; R19.7 Diarrhea, unspecified; K35.33 Acute appendicitis with perforation, localized peritonitis, and gangrene, with abscess; K57.32 Diverticulitis of large intestine without perforation or abscess without bleeding; K90.41 Non-celiac gluten sensitivity; K56.7 Ileus, unspecified; K63.89 Other specified diseases of intestine; H54.7 Unspecified visual loss; E78.00 Pure hypercholesterolemia, unspecified; E86.0 Dehydration; B96.89 Other specified bacterial agents as the cause of diseases classified elsewhere; Z90.49 Acquired absence of other specified parts of digestive tract; Z98.890 Other specified postprocedural states; Z90.89 Acquired absence of other organs; Z79.899 Other long term (current) drug therapy
CPT/HCPCS: 36415; 74019; 74177; 80053; 83605; 83690; 85025; 96361; 96374; 96375; 99284; 99285; J2405; J3010; J7030 ×2; Q9967; 36569; 74018; 80048; 83735; 84100; 85027; 86850; 86900; 86901; 87070; 87075; 87077; 87205; 88305; 88307; 94762; A9270-GY; C9113; J0330; J1100; J1200; J1650; J2020; J2060; J2250; J2543; J2704; J2710; J3480; J3490; J7042; J7050; J7120

== ENCOUNTER 2022-06-11 18:44 | Emergency (ER) | payer MEDICARE, BC ==
[2022-06-11 19:55] LABS: CORONAVIRUS COVID-19 NAA NEGATIVE (NEGATIVE)
== END 2022-06-11 20:25 | disposition home or self-care (01) ==
LOC: JP.ED 18:44
DX: J02.9 Acute pharyngitis, unspecified (principal); E78.00 Pure hypercholesterolemia, unspecified; Z79.899 Other long term (current) drug therapy; Z91.018 Allergy to other foods; Z20.822 Contact with and (suspected) exposure to COVID-19
CPT/HCPCS: 0241U; 87081; 87880; 99283